=== PATIENT | male | born 1965 | race Caucasian/White ===

== ENCOUNTER 2021-01-15 15:13 | Outpatient (REF) | payer MEDICARE, MEDICAID, SELFPAY ==
--- NOTE | ~2021-01-15 | US_ITS ---
EXAMINATION: US RETROPERITONEAL COMPLETE (RENAL) CLINICAL INFORMATION: Hypertension, THIAGO. Rule out obstructive uropathy. COMPARISON: Renal ultrasound 02/15/2019 TECHNIQUE: Real-time imaging of the kidneys and bladder. FINDINGS: RIGHT KIDNEY: 9.6 x 6.1 x 5.0 cm (SAG x AP x TRV). The kidney is normal in size, contour, and echogenicity. Renal cortical thickness is normal. No calculi or focal parenchymal lesions. No hydronephrosis. LEFT KIDNEY: 9.5 x 5.1 x 6.4 cm (SAG x AP x TRV). The kidney is normal in size, contour, and echogenicity. Renal cortical thickness is normal. No calculi or focal parenchymal lesions. No hydronephrosis. BLADDER: Bladder wall is slightly thickened.. Bilateral ureteral jets are demonstrated. Prevoid bladder volume is 289 mL. Postvoid bladder volume is 188 mL. PROSTATE: The prostate gland is normal in size measuring 2.7 x 3.1 x 3.7 cm, volume 16 mL. There is a 1.6 x 1.4 x 2 cm cyst adjacent to the prostate gland that appears unchanged. US/US retroperitoneal comp IMPRESSION: Normal renal ultrasound. Slightly thickened bladder wall and large 188 mL post void bladder residual.
== END 2021-01-15 15:14 | disposition home or self-care (01) ==
LOC: HO.HMGCX 15:13
PROVIDERS: PCP Family Medicine; Visit Provider Family Medicine
DX: I10 Essential (primary) hypertension (principal); S37.009A Unspecified injury of unspecified kidney, initial encounter
CPT/HCPCS: 76770

== ENCOUNTER 2021-03-27 10:20 | Outpatient (REF) | payer MEDICARE, MEDICAID, SELFPAY ==
[2021-03-27 14:33] LABS: Cholesterol 401 mg/dL; HDL Cholesterol 54 mg/dL; LDL Cholesterol Calculated 306 mg/dl; Triglycerides 209 mg/dL
== END 2021-03-27 10:21 | disposition home or self-care (01) ==
LOC: HO.WFDLDS 10:20
PROVIDERS: PCP Family Medicine; Visit Provider Internal Medicine Cardiovascular Disease
DX: E78.5 Hyperlipidemia, unspecified (principal)
CPT/HCPCS: 36415; 80061

== ENCOUNTER → 2021-03-29 12:45 | Outpatient (BNVA) | payer MEDICARE, MEDICAID, SELFPAY | PROVIDERS: PCP Family Medicine; Visit Provider Internal Medicine Cardiovascular Disease | DX: R94.39 Abnormal result of other cardiovascular function study (principal); R07.9 Chest pain, unspecified; E78.49 Other hyperlipidemia | CPT/HCPCS: 93005; 99212 ==

== ENCOUNTER 2021-08-30 11:50 | Outpatient (REF) | payer MEDICARE, MEDICAID, SELFPAY ==
[2021-08-30 12:24] LABS: COVID-19 Test Negative (Negative); IDNOW Serial# 9DB6401D
== END 2021-08-30 11:51 | disposition home or self-care (01) ==
LOC: HO.LAB 11:50
PROVIDERS: PCP Family Medicine; Visit Provider Internal Medicine
DX: Z20.822 Contact with and (suspected) exposure to COVID-19 (principal)
CPT/HCPCS: 87635; C9803

== ENCOUNTER 2022-07-30 12:27 | Outpatient (REF) | payer MEDICARE, MEDICAID, SELFPAY ==
[2022-07-30 14:01] LABS: MANUAL DIFF FLAG NO
[2022-07-30 14:12] LABS: Basophils Absolute Auto 0.1 X10*3/uL (0.0-0.2); Basophils Percent Auto 0.9 % (0-2); Eosinophils Absolute Auto 0.3 X10*3/uL (0.0-0.4); Eosinophils Percent Auto 3.9 % (0-4); Hematocrit 43.7 % (42.0-52.0); Hemoglobin 14.1 g/dl (14.0-18.0); Imm Gran Abs Auto 0.05 X10*3/uL (0.00-0.03); Imm Gran Pct Auto 0.8 % (0.0-0.4); Lymphocytes Absolute Auto 0.8 X10*3/uL (1.2-4.9); Lymphocytes Percent Auto 12.9 % (20-40); Mean Corpuscular HGB Conc 32.3 g/dl (31.0-36.0); Mean Corpuscular Hemoglobin 27.6 pg (27.0-33.0); Mean Corpuscular Volume 85.5 fL (80.0-98.0); Mean Platelet Volume 11.9 fL (9.4-12.4); Monocytes Absolute Auto 0.8 X10*3/uL (0.1-1.2); Neutrophils Absolute Auto 4.4 x10*3/uL (2.0-8.3); Neutrophils Percent Auto 68.5 % (45-73); Platelet Count 374 X10*3/uL (160-400); Red Blood Count 5.11 X10*6/uL (4.60-5.80); Red Cell Distribution Width 14.3 % (11.0-16.0); White Blood Count 6.5 X10*3/uL (4.8-10.8)
[2022-07-30 14:28] LABS: Blood Urea Nitrogen 26 mg/dL (9-16); Estimated Glomerular Filt Rate 47
[2022-08-01 15:33] LABS: IgA 100 mg/dL (47-310); IgG 786 mg/dL (600-1640); IgM 92 mg/dL (50-300)
== END 2022-07-30 12:28 | disposition home or self-care (01) ==
LOC: HO.10HDL 12:27
PROVIDERS: Visit Provider Physician Assistant
DX: G35 Multiple sclerosis (principal); Z79.899 Other long term (current) drug therapy
CPT/HCPCS: 36415; 82565; 82784; 84520; 85025

== ENCOUNTER 2022-08-27 14:06 | Outpatient (REF) | payer MEDICARE, MEDICAID, SELFPAY ==
--- NOTE | ~2022-08-27 | XR_ITS ---
EXAMINATION: XR HIP, RIGHT CLINICAL INFORMATION: Right hip pain status post fall. COMPARISON: None available. TECHNIQUE: AP and lateral views of the right hip and and AP view of the pelvis. FINDINGS: Mild osteoarthritis at the right hip is characterized by small marginal osteophytes and articular sclerosis. No fracture or malalignment. Osseous prominence is present at the femoral head-neck junction anteriorly. No fracture or malalignment. SI joints and pubic symphysis are normal. Soft tissues are unremarkable. XR/XR hip RT w PEL1V IMPRESSION: Mild osteoarthritis at the right hip. No acute osseous findings.
== END 2022-08-27 14:07 | disposition home or self-care (01) ==
LOC: HO.XRAY 14:06
PROVIDERS: Visit Provider Family Medicine
DX: M25.551 Pain in right hip (principal); Z91.81 History of falling
CPT/HCPCS: 73502

== ENCOUNTER → 2022-09-16 09:45 | Outpatient (BNVA) | payer MEDICARE, MEDICAID, SELFPAY | PROVIDERS: PCP Family Medicine; Visit Provider Physician Assistant | DX: M16.11 Unilateral primary osteoarthritis, right hip (principal); M70.71 Other bursitis of hip, right hip | CPT/HCPCS: 99202 ==

== ENCOUNTER 2023-03-12 11:30 | Outpatient (AMB) | payer MEDICARE, MEDICAID, SELFPAY ==
[2023-03-12 11:33] VITALS: BMI 28.9
--- NOTE | 2023-03-12 11:33 | A.OFFVIS_ITS ---
Intake Vital Signs 03/12/23 11:33 Height 5 ft 8 in Weight 190 lb BMI 28.9 Intake Visit Reasons: OV- Right hip pain Intake Note: Juan 57 year old male presents today for a follow up of right hip. Patient reports he was not able to attend therapy. States pain comes with any movement and will feel a snap. He would like to discuss injection. Allergies iodine Allergy (Unknown, Uncoded 03/12/23 11:41) red flush HPI OV- Right hip pain HPI Details 57-year-old male who returns to the [facility] today for a follow-up of right hip pain. He continues to have pain in his hip with any movement. He also c/o feeling a ?snap? in his hip. He reports he was unable to attend physical therapy. He finds transient relief with Celebrex. He would like to discuss having an injection. [facility], [facility] Medical History (Updated 03/12/23 @ 12:23 by Seema Guerra PA-C) Hypertension Multiple sclerosis Surgical History History of tonsillectomy Family History (Updated 03/29/21 @ 12:48 by KRISTOPHER Best) Father CAD (coronary artery disease) Arteriosclerosis of bypass graft of coronary artery Mother CAD (coronary artery disease) Heart valve replaced Social History Alcohol intake: current Alcohol intake frequency: holidays/special occasions only Patient Tobacco Use Status: Former Tobacco user Tobacco use type: Cigarette Years Smoked: 40 +/- Substance Use Type: Marijuana Current occupational status: disabled Review of Systems Const All systems reviewed & are unremarkable except as noted in HPI and below Physical Exam Vital Signs: BMI result Body Mass Index 28.9 Const General: cooperative, healthy appearing, comfortable, no acute distress, well developed and alert Orientation/consciousness: patient oriented x3 HEENT Head: Yes normal to inspection, Yes normocephalic and Yes atraumatic Eyes General: appearance normal, both eyes and all related structures Resp Effort & Inspection: normal respiratory effort and able to speak in complete sentences Cardio Rate: regular rate Peripheral pulses: Peripheral pulses 2+ throughout GI Palpation (GI): Soft to palpation Skin Lesions: no lesions Rashes: no rashes Neuro General: patient oriented x3 Extrem Other: Right hip: Normal to inspection. No pain with ROM of the hip. Pain along the greater trochanter. No pain with hip flexion or abduction. Negative tenderness along the SI joint, Negative SLR. NVI. Assessment & Plan Assessment & Plan (1) Osteoarthritis of right hip: Code(s): M16.11 - Unilateral primary osteoarthritis, right hip Qualifiers: Osteoarthritis type: primary Qualified Code(s): M16.11 - Unilateral primary osteoarthritis, right hip (2) Bursitis of right hip: Code(s): M70.71 - Other bursitis of hip, right hip Qualifiers: Hip bursitis location: trochanteric bursitis Qualified Code(s): M70.61 - Trochanteric bursitis, right hip Plan He is unable to attend formal physical therapy therefore I had given him a handout of home exercises and demonstrated some of it in the office today. If symptoms persist or worsens, patient will contact the office for an injection, otherwise follow-up as needed. Patient Instructions: Scribed for Seema Guerra PA-C, by Daljit Benavides director medical surgical, on 03/12/2023 at 11:30 AM EST. Seema Armstrong PA-C, have personally reviewed and agree with the information entered by the scribe. Coding Level of Care Code Est Pt Level 3 (52364) Diagnoses Primary osteoarthritis of right hip M16.11 Osteoarthritis type: primary Trochanteric bursitis of right hip M70.61 Hip bursitis location: trochanteric bursitis
== END 2023-03-12 12:51 | disposition home or self-care (01) ==
PROVIDERS: PCP Family Medicine; Visit Provider Physician Assistant
DX: M16.11 Unilateral primary osteoarthritis, right hip (principal); M70.61 Trochanteric bursitis, right hip
CPT/HCPCS: 99213

== ENCOUNTER → 2023-03-12 11:30 | Outpatient (BNVA) | payer MEDICARE, MEDICAID, SELFPAY | PROVIDERS: PCP Family Medicine; Visit Provider Physician Assistant | DX: M16.11 Unilateral primary osteoarthritis, right hip (principal); M70.61 Trochanteric bursitis, right hip; G35 Multiple sclerosis | CPT/HCPCS: 99212 ==

== ENCOUNTER → 2025-02-22 13:17 | Outpatient (BNVA) | payer MEDICARE, MEDICAID, SELFPAY | PROVIDERS: PCP Family Medicine; Visit Provider Physician Assistant | DX: I10 Essential (primary) hypertension (principal); E78.5 Hyperlipidemia, unspecified; G35.D Multiple sclerosis, unspecified; E55.9 Vitamin D deficiency, unspecified; F32.9 Major depressive disorder, single episode, unspecified | CPT/HCPCS: 99202 ==

== ENCOUNTER 2025-02-22 14:27 | Outpatient (AMB) | payer MEDICARE, MEDICAID, SELFPAY ==
--- OUTSIDE RECORDS SUMMARY | 2024-01-30 13:06 | XMS_ITS | Encounter Summary ---
Author Organization [facility] Address [address] [place] [address] Care Team Providers Care Attorney Law Clerk Name Role Phone Te Pyane MD Primary Care Provider [phone] Encounter Details Date Type Department Care Team (Latest Contact Info) Description 01/30/2024 1:06 PM EDT Hospital Encounter TH HISTORIC ENCOUNTERS EASTERN CONVERSION ONLY Te Payne MD [address] [place] [place] [address] Unilateral primary osteoarthritis, right hip Social History [...] Description 04/06/2025 3:00 PM EST Office Visit [facility] [place] [address] [place] [address] Ada Hinton PA [address] [place] [phone] 08/16/2025 12:00 PM EDT Appointment [facility] MS Outpatient Rehabilititation - [place] [address] [place] [address] documented as of this encounter [...] EDT Narrative 01/30/2024 2:[address] [facility] Diagnostic Imaging Department [address] [place] [address] Patient: ATILIO ALONSO D.O.B./Age/Sex: 1965 - 58 - M Unit#: [id number] [facility] Mnemonic/Ordering Site: [address]/[facility] Ordering Physician: TE PAYNE MD CR Hip [...] Moderate arthritic change of the right hip. [id number] Dictating Physician: COCO VAUGHN MD Electronically Signed by: COCO VAUGHN MD Dic Date/Time: 01/30/24 1429 Sign date/Time: 01/30/24 1431 Procedure Note Coco Vaughn MD - 02/24/2024 [facility] Diagnostic Imaging Department [address] [place] [address] Patient: ATILIO ALONSO Darling CrumpB./Age/Sex: 1965 - 58 - M Unit#: [id number] Location/Status: SPD[facility]/REG CLI Mnemonic/Ordering Site: [facility] Ordering Physician: TE PAYNE MD CR Hip [...] Moderate arthritic change of the right hip. [id number] Dictating Physician: COCO VAUGHN MD Electronically Signed by: COCO VAUGHN MD Dic Date/Time: 01/30/24 1429 Sign date/Time: 01/30/24 1431 us Te Payne MD IMG XR PROCEDURES Final Result documented in this encounter Visit Diagnoses Diagnosis Unilateral primary osteoarthritis, right hip documented in this encounter Care Teams Attorney Law Clerk Relationship Specialty Start Date End Date Te Payne MD [address] [place] [address] [place] [address] PCP - General Internal Medicine 05/09/20 documented as of this encounter
--- OUTSIDE RECORDS SUMMARY | 2024-02-10 11:14 | XMS_ITS | Encounter Summary ---
Author Organization [facility] [place] [address] Care Team Providers Care Haulage Engine Operator Name Role Phone Venancio Payne MD Primary Care Provider [phone] Encounter Details Date Type Department Care Team [...] Description 04/06/2025 3:00 PM EST Office Visit [facility] [address] [facility] [address] [place] [address] Ada Hinton PA [address] [place] [address] 08/16/2025 12:00 PM EDT Appointment [facility] Outpatient Rehabilititation - [place] [address] [facility] [address] [place] [address] documented as of this encounter Visit Diagnoses Not on filedocumented in this encounter Care Teams Haulage Engine Operator Relationship Specialty Start Date End Date Venancio Payne MD [address] [place] [address] [address] [place] [address] PCP - General Internal Medicine 05/09/20 documented as of this encounter
--- OUTSIDE RECORDS SUMMARY | 2025-02-16 11:32 | XMS_ITS | Encounter Summary ---
Author Organization [facility] Address [address] [place] [address] Care Team Providers Care Bone Drier Name Role Phone Venancio Payne MD Primary Care Provider [phone] Reason for Visit * Episode Based Medications (Routine) - Closed Specialty Diagnoses / Procedures Referred By Contac t Referred To Contact Infusion Therapy Diagnoses Multiple sclerosis (CMS/HCC V24, CMS/HCC V28) Ocrevus 600 rapid Procedures INFUSION Ada Hinton PA [address] [address] Phone: tel: fax: [facility] [address] [address] Phone: tel: fax: Referral ID Status Reason Start Date Expiration Date Visits Re quested Visits Authorized [id number] Closed 08/10/2024 08/09/2025 2 2 Encounter Details Date Type Department Care Team (Latest Contact Info) Description 02/16/2025 11:32 AM EDT - 02/16/2025 11:59 PM EDT Hospital Encounter [facility] [address] [phone] Multiple sclerosis (Primary Dx); Encounter for therapeutic drug monitoring Discharge Disposition: Home or Self Care Social History Tobacco Use Types Packs/Day Years Used Date Smoking Tobacco: Some Days Smokeless Tobacco: Never Tobacco Cessation:Ready to Q uit: Not Asked; Counseling Given: Not Answered Alcohol Use Standard Drinks/Week Comments No 0 (1 standard drink = 0.6 oz pur e alcohol) Sex and Gender Information Value Date Recorded Sex Assigned at Not on file Legal Sex Male 5:09 AM EST Gender Identity Not on file Sexual Orientation Not on file documented as of this encounter Last Filed Vital Signs Vital Sign Reading Time Taken Comments Blood Pressure 156/92 02/16/2025 2:46 PM EDT Pulse 65 02/16/2025 2:46 PM EDT Temperature 36 C (96.8 F) 02/16/2025 2:46 PM EDT Respiratory Rate 18 02/16/2025 2:46 PM EDT Oxygen Saturation 93% 02/16/2025 2:46 PM EDT Inhaled Oxygen Concentration - - Weight - - Height - - Body Mass Index - - documented in this encounter Medications at Time of Discharge amLODIPine (NORVASC) 5 mg tablet Take 1 tablet (5 mg total) by mouth. 10/11/2019 apixaban (ELIQUIS) 5 mg tablet Take 1 tablet (5 mg total) by mouth 2 (two) times a day. 04/18/2020 ergocalciferol (VITAMIN D-2) 1,250 mcg (50,000 unit) capsule Take 1 capsule (50,000 Units total) by mouth 1 (one) time per week. 12 capsule 05/21/2024 escitalopram (LEXAPRO) 5 mg tablet Take 1 tablet (5 mg total) by mouth. 09/21/2021 eszopiclone (LUNESTA) 3 mg tablet Take 1 tablet (3 mg total) by mouth. at bedtime for sleep 10/11/2024 fenofibrate (LOFIBRA) 160 mg tablet Take 1 tablet (160 mg total) by mouth. 10/11/2019 hydrOXYzine (ATARAX) 10 mg/5 mL syrup Take 5 mL (10 mg total) by mouth. pantoprazole (PROTONIX) 40 mg EC tablet Take 1 tablet (40 mg total) by mouth. QUEtiapine (SEROquel) 25 mg tablet Take 1 tablet (25 mg total) by mouth. senna (SENOKOT) 8.6 mg tablet TAKE 1 TABLET BY MOUTH AT BEDTIME NEEDED FOR CONSTIPATION 08/14/2021 documented as of this encounter Discharge Disposition Disposition Code Departure Means Destination Home or Self Care documented in this encounter Progress Notes * Amy Akers RN - 02/16/2025 12:00 PM EDTEncounter addended by: Amy Akers RN on: 02/16/2025 3:29 PM Actions taken: LDA properties accepted, Flowsheet accepted * Amy Akers RN - 02/16/2025 12:00 PM EDT Ocrevus dose 600mg Infusion # 6 completed. Pt. premedicated with 975mg PO Tylenol, 50mg IVP Benadryl, and 125mg IVP Solumedrol. Labs: drawn 08/10/24 Brain MRI: 07/08/24 Cervical MRI: 07/08/24 Provider: Ashley Last appointment: 10/25/24 Next appointment: [facility] 6 month subsequent infusion: 02/08/25 Pt. completed observation period. Pt. verbalized understanding of all discharge instructions and future appointment dates/times provided. Pt. Tolerated infusion well. No signs of reaction. Pt. BP still elevated. Pt. States he feels well. States he takes blood pressure medication, took dose this AM.Pt has appointment with new PCP on Friday02/22/25 BP. Also instructed to see immediate medical care if severe headache, chest pain, vision changes, N/V. IV removed, discharge to home. documented in this encounter Plan of Treatment Upcoming Encounters Date Type Department Care Team (Late st Contact Info) Description 04/06/2025 3:00 PM EST Office Visit [facility] [place] [address] [place] [phone] Ada Hinton PA [facility] [place] [phone] 08/16/2025 12:00 PM EDT Appointment [facility] [place] [address] [place] [phone] documented as of this encounter Procedures Procedure Name Priority Date/Time Associated Diagnosis Comments CBC WITH AUTO DIFFERENTIAL Routine 02/16/2025 11:43 AM EDT Multiple sclerosis Encounter for therapeutic drug monitoring CREATININE, SERUM Routine 02/16/2025 11: 43 AM EDT Multiple sclerosis Encounter for therapeutic drug monitoring CBC AND DIFFERENTIAL Routine 02/16/2025 11:43 AM EDT Multiple sclerosis Encounter for therapeutic drug monitoring BUN Routine 02/16/2025 11:43 AM EDT Multiple sclerosis Encounter for therapeutic drug monitoring HEPATIC FUNCTION PANEL Routine 02/16/2025 11:43 AM EDT Multiple sclerosis Encounter for therapeutic drug monitoring documented in this encounter Results * (ABNORMAL) CBC auto differential (02/16/2025 11:43 AM EDT) WBC 7.5 4.8 - 10.8 K/mcL LAB HEMETOLOGY METHOD 02/16/2025 2:18 PM EDT [facility] RBC 5.50 4.50 - 5.50 M/mcL LAB HEMETOLOGY METHOD 02/16/2025 2:18 PM EDT [facility] Hemoglobin 16.5 13.5 - 17.5 g/dL LAB HEMETOLOGY METHOD 02/16/2025 2:18 PM EDT [facility] Hematocrit 46.6 42.0 - 54.0 % LAB HEMETOLOGY METHOD 02/16/2025 2:18 PM EDT [facility] MCV 84.9 79.0 - 98.0 FL LAB HEMETOLOGY METHOD 02/16/2025 2:18 PM EDT [facility] MCH 30.1 27.0 - 32.0 pcg LAB HEMETOLOGY METHOD [facility] MCHC 35.4 32.0 - 37.0 g/dL LAB HEMETOLOGY METHOD 02/16/2025 2:18 PM EDT [facility] RDW 14.3 11.0 - 15.0 % LAB HEMETOLOGY METHOD 02/16/2025 2:18 PM EDT [facility] Platelets 426(H) 130 - 400 K/mcL LAB HEMETOLOGY METHOD 02/16/2025 2:18 PM EDT [facility] MPV 11.7(H) 7.0 - 11.0 FL LAB HEMETOLOGY METHOD 02/16/2025 2:18 PM EDT [facility] NRBC 0.0 <1.0 % LAB HEMETOLOGY METHOD 02/16/2025 2:18 PM EDT [facility] NRBC Absolute 0.00 <0.10 K/mcL LAB HEMETOLOGY METHOD [facility]/16[facility]25 [facility] Neutrophils Relative 67.6 % LAB HEMETOLOGY METHOD 02/16/2025 2:18 PM EDT [facility] Lymphocytes Relative 14.8 % LAB HEMETOLOGY METHOD 02/16/2025 2:18 PM EDT [facility] Monocytes Relative 11.2 % LAB HEMETOLOGY METHOD 02/16/2025 2:18 PM [facility] Eosinophils Relative 4.5 % LAB HEMETOLOGY METHOD 02/16/2025 2:18 PM EDT [facility] Basophils Relative 1.1 % LAB HEMETOLOGY METHOD 02/16/2025 2:18 PM EDT [facility] Immature Granulocytes Relative 0.8 % LAB HEMETOLOGY METHOD 02/16/2025 2:18 PM EDT [facility] Neutrophils Absolute 5.08 1.50 - 7.00 K/mcL LAB HEMETOLOGY METHOD 02/16/2025 2:18 PM EDT [facility] Lymphocytes Absolute 1.11 1.00 - 5.00 K/mcL LAB HEMETOLOGY METHOD 02/16/2025 2:18 PM EDT [facility] Monocytes Absolute 0.84 0.20 - 1.00 K/[facility] LAB HEMETOLOGY METHOD 02/16/2025 2:18 PM EDT [facility] Eosinophils Absolute 0.34 0.00 - 0.50 K/[facility] LAB HEMETOLOGY METHOD 02/16/2025 2:18 PM EDT [facility] Basophils Absolute 0.08 0.00 - 0.20 K/[facility] LAB HEMETOLOGY METHOD 02/16/2025 2:18 PM EDT [facility] Immature Granulocytes Absolute 0.06(H) 0.00 - 0.03 K/[facility] LAB HEMETOLOGY METHOD 02/16/2025 2:18 PM EDT [facility] Blood Venous blood specimen / Unknown Venipuncture / Unknown 02/16/2025 11:43 AM EDT 02/16/2025 11:43 AM EDT Ada LEVIN LAB BLOOD ORDERABLES Final R esult [facility] [address] [place] [address], [place] [phone] * Hepatic function panel (02/16/2025 11:43 AM EDT) Total Protein 6.8 6.0 - 8.0 g/dL LAB CHEMISTRY METHOD 02/16/2025 3:08 PM EDT [facility] Albumin 3.7 3.2 - 5.0 g/dL LAB CHEMISTRY METHOD 02/16/2025 3:08 PM EDT [facility] Total Bilirubin 0.4 0.0 - 1.4 mg/dL LAB CHEMISTRY METHOD 02/16/2025 3:08 PM EDT [facility] Bilirubin, Direct 0.2 0.0 - 0.3 mg/dL LAB CHEMISTRY METHOD 02/16/2025 3:08 PM EDT [facility] Bilirubin, Indirect 0.2 0.0 - 1.1 mg/dL LAB CHEMISTRY METHOD 02/16/2025 3:08 PM EDT [facility] ALT (SGPT) 51 10 - 60 unit/L LAB CHEMISTRY METHOD 02/16/2025 3:08 PM EDT [facility] AST (SGOT) 37 10 - 42 unit/L LAB CHEMISTRY METHOD 02/16/2025 3:08 PM EDT [facility] Alkaline Phosphatase 100 42 - 121 unit/L LAB CHEMISTRY METHOD 02/16/2025 3:08 PM EDT [facility] Blood Venous blood specimen / Unknown Venipuncture / Unknown 02/16/2025 11:43 AM EDT 02/16/2025 11:43 AM EDT Ada LEVIN LAB BLOOD ORDERABLES Final R esult [facility] [address] [place] [address], * (ABNORMAL) Creatinine (02/16/2025 11:43 AM EDT) Creatinine 1.54(H) 0.70 - 1.30 mg/dL LAB CHEMISTRY METHOD 02/16/2025 3:04 PM EDT [facility] eGFR 52(L) >=60 mL/min/1. 73m2 LAB CHEMISTRY METHOD 02/16/2025 3:04 PM EDT [facility] Comment:Calculation based on the Chronic Kidney Disease Epidemiology Collaboration (CKD-EPI) equation refit without adjustment for race. Blood Venous blood specimen / Unknown Venipuncture / Unknown 02/16/2025 11:43 AM EDT 02/16/2025 11:43 AM EDT us Ada LEVIN LAB BLOOD ORDERABLES Final R esult Performing Organization Address City/[facility]/ZIP Co de Phone Number [facility] [address] [place] [address], * BUN (02/16/2025 11:43 AM EDT) BUN 17 5 - 25 mg/dL LAB CHEMISTRY METHOD 02/16/2025 3:04 PM EDT [facility] Blood Venous blood specimen / Unknown Venipuncture / Unknown 02/16/2025 11:43 AM EDT 02/16/2025 11:43 AM EDT Ada LEVIN LAB BLOOD ORDERABLES Final R esult Performing Organization Address [facility] Co de Phone Number [facility] [address] [place] [address], documented in this encounter Visit Diagnoses Diagnosis Multiple sclerosis- Primary Encounter for therapeutic drug monitoring documented in this encounter Administered Medications Inactive Administered Medications - up to 3 most recent administrations Medication Order MAR Action Action Date Dose Rate Site acetaminophen (TYLENOL) tablet 975 mg 975 mg, oral, Once, On Fri02/16/25 at 1200, For 1 doseIndications:Multiple sclerosis Given 02/16/2025 12:06 PM EDT 975 mg diphenhydrAMINE (BENADRYL) injection 50 mg 50 mg, intravenous, Once, On Fri02/16/25 at 1200, For 1 doseIndications:Multiple sclerosis Given 02/16/2025 12:07 PM EDT 50 mg methylPREDNISolone sodium succ (SOLU-Medrol) injection 125 mg 125 mg, intravenous, Once, On Fri02/16/25 at 1200, For 1 dose, Reconstitute each 125 mg vial with 2 mL sterile water for injection to a concentration of 62.5 mg/mL.Indications:Multiple sclerosis Given 02/16/2025 12:07 PM EDT 125 mg ocrelizumab (OCREVUS) 600 mg in sodium chloride 0.9 % 520 mL IVPB 600 mg, intravenous, Once, On Fri02/16/25 at 1230, For 1 dose, If no prior serious infusion reaction with any previous ocrelizumab infusion, begin infusion at 100 mL/hour for the first 15 minutes. Increase infusion rate to 200 mL/hour for the next 15 minutes. Increase infusion rate to 250 mL/hour for the next 30 minutes. Increase infusion rate to 300 mL/hour for the remaining 60 minutes. Infusion duration is 2 hours or longer. For patients with a history of serious infusion reaction to any previous ocrelizumab infusion, begin infusion at 40 mL/hour; increase by 40 mL/hour every 30 minutes to a maximum rate of 200 mL/hour. Infusion duration is 3.5 hours or longer. Administer though a dedicated IV line using a 0.2 or 0.22 micron in-line filter.Indications:Multiple sclerosis New Bag 02/16/2025 12:36 PM EDT 600 mg documented in this encounter Orders Nursing Count Last Ordered Date First Orde red Date ONC NURSING COMMUNICATION 1 02/16/2025 ONC NURSING COMMUNICATION 10 1 02/16/2025 ONC NURSING COMMUNICATION 7 1 02/16/2025 TREATMENT CONDITIONS 1 02/16/2025 documented in this encounter Care Teams Bone Drier Relationship Specialty Start Date End Date Venancio Payne MD [address] [place] [address] [place] [address] PCP - General Internal Medicine 05/09/20 documented as of this encounter
--- NOTE | 2025-02-22 14:50 | MHC.PC.OV ---
Vital Signs 02/22/25 15:03 Weight 87.09 kg BP 166/100 H Blood Pressure Location Rt brachial Position Sitting Pulse 82 Pulse Source Pulse Oximeter Temp 98.4 F Temp Source Temporal Artery Scan Pulse Oximetry (%) 98 Oxygen Delivery Method Room Air Intake Visit Reasons: New Patient [facility] Dr Payne Loss Prevention Coordinator Required: No Accompanied by: Self / Same As Patient Allergies iodine Allergy (Unknown, Uncoded 03/12/23 11:41) red flush Medication List - Last Reconciled 02/22/25 by POONAM Bell apixaban (Eliquis) 5 mg PO BID cholecalciferol (vitamin D3) 25 mcg PO QAM escitalopram oxalate mg PO eszopiclone mg PO fenofibrate 160 mg PO DAILY hydroxyzine HCl mg PO ocrelizumab (Ocrevus) 600 mg IV [id number] omeprazole mg PO quetiapine mg PO sennosides (senna) 8.6 mg PO DAILY PRN vitamin B complex ER (Complex B-100 tablet,extended release) 1 tab PO DAILY Tobacco use date assessed: 02/22/25 Dental Screening Dental Screen Date: 02/22/25 Did you have a dental visit in the last 12 months?: No Did you have a dental problem in the last 6 months where you did not have access to dental care?: No Was dental information given to patient?: Patient has dentist HPI HPI Comments History of Present Illness Details 59-year-old male with history of multiple sclerosis, hypertension, colon polyp, familial hypercholesterolemia, GERD, CKD stage 3, history of PE, major depressive disorder, neurogenic bladder presenting to the office today for management of chronic conditions and to establish care. He is a prior patient of Dr. Payne, last seen 09/2024. Multiple sclerosis-follows with the [facility]. Has been doing well on Ocrevus infusions every 6 months. Reports symptoms of fatigue and balance have improved. He still has spasticity in the right lower extremity as well as left. He uses walking sticks to assist with ambulation. He does have optic neuritis and is looking for a referral to new fiction and nonfiction prose writer. Has visual blind spots and kaleidoscope vision Familial hypercholesterolemia-overdue for lipid panel. Last LDL 306. Intolerant of statins. Currently on fenofibrate 160 mg daily Major depressive disorder-stable on escitalopram. Also hydroxyzine and Lunesta Obesity-working at weight loss. Has lost about 30 lb in the last year. Following a healthier diet History of PE-lifelong Eliquis Concerns: None Health maintenance: Last colonoscopy 08/2023 with tubular adenoma, Dr. Wang [facility] ROS: See HPI EXAM: Constitutional - Awake and Alert, No apparent distress Eyes - PERRL Cardiovascular - S1S2, RRR, No edema Respiratory - Normal lung expansion, Normal respiratory effort, No respiratory distress, CTA bilaterally Extremities - no calf tenderness bilaterally, no swelling Skin - Warm/Dry Neurological - Alert & oriented x3, spasticity noted in the right lower extremity Psychological - Appropriate affect [facility] Medical History (Updated 02/23/25 @ 12:53 by POONAM Bell) Major depressive disorder Vitamin D deficiency Hypertension Multiple sclerosis Surgical History (Updated 02/21/25 @ 18:21 by Rae Back) History of colonoscopy (~08/28/23) History of tonsillectomy Family History (Updated 03/29/21 @ 12:48 by KRISTOPHER Best) Father CAD (coronary artery disease) Arteriosclerosis of bypass graft of coronary artery Mother CAD (coronary artery disease) Heart valve replaced Social History Housing: House Alcohol intake: current Alcohol intake frequency: holidays/special occasions only Patient Tobacco Use Status: Former Tobacco user Tobacco use type: Cigarette Years Smoked: 40 +/- e-Cigarette/Vaping Use: Never Used Substance Use Type: Marijuana service: No Current occupational status: disabled Questionnaire AUDIT C Alcohol Use Questionnaire (AUDIT-C) 1. How often do you have a drink containing alcohol?: Monthly or less 2. How many drinks containing alcohol do you have on a typical day when you are drinking?: 1 or 2 3. How often do you have six or more drinks on one occasion?: Never Total Score: 1 Physical exam (Primary Care) Vital Signs: Last Vital Signs Temp 98.4 F 02/22/25 15:03 Pulse 82 02/22/25 15:03 BP 166/100 H 02/22/25 15:03 Pulse Ox 98 02/22/25 15:03 Oxygen Delivery Method Room Air 02/22/25 15:03 Tobacco/Smoking Status: Tobacco use Status Tobacco use date assessed 02/22/25 02/22/25 15:02 Patient Tobacco Use Status Former Tobacco user 02/22/25 14:51 Tobacco use type Cigarette 02/22/25 14:51 e-Cigarette/Vaping Use Never Used 02/22/25 15:10 Coding Level of Care Code New Pt Level 4 (98972) Complex EM visit Add On G2211 Diagnoses Hypertension I10 Hyperlipidemia E78.5 Multiple sclerosis G35 Vitamin D deficiency E55.9 Major depressive disorder F32.9 Assessment & Plan Assessment & Plan (1) Hypertension: Code(s): I10 - Essential (primary) hypertension Category: Medical Plan: Uncontrolled. Increase amlodipine to 10 mg daily. Follow up in the office in 2-3 weeks for blood pressure check. Low-sodium diet (2) Hyperlipidemia: Code(s): E78.5 - Hyperlipidemia, unspecified Category: Medical Plan: Lipid panel ordered. ASCVD risk score to be calculated pending results of studies. Intolerant of statins. Can continue fenofibrate. However last LDL was 306. Consider referral to Cardiology/Repatha (3) Multiple sclerosis: Code(s): G35 - Multiple sclerosis Category: Medical Plan: Stable overall. [facility] Declines muscle relaxer for spasticity. Advised to continue with walking stick versus since balance. Referral for ophthalmology placed. Can continue on Ocrevus. Labs ordered as below for monitoring (4) Vitamin D deficiency: Code(s): E55.9 - Vitamin D deficiency, unspecified Category: Medical Plan: Labs as below (5) Major depressive disorder: Code(s): F32.9 - Major depressive disorder, single episode, unspecified Category: Medical Plan: Stable. No alarm symptoms. Continue current therapies (6) Hypertension: Code(s): I10 - Essential (primary) hypertension Category: Medical Plan: Uncontrolled. Increase amlodipine to 10 mg daily. Plan Follow-up in the office in 3 weeks for blood pressure check. Fasting labs ordered Orders: Orders Basic Metabolic Panel 02/22/25 E78.5 - Hyperlipidemia, unspecified, G35 - Multiple sclerosis, I10 - Essential (primary) hypertension Complete Blood Count Auto Diff 02/22/25 E78.5 - Hyperlipidemia, unspecified, G35 - Multiple sclerosis, I10 - Essential (primary) hypertension Prostate Specific Antigen 02/22/25 E78.5 - Hyperlipidemia, unspecified, G35 - Multiple sclerosis, I10 - Essential (primary) hypertension Vitamin D 25-OH Total 02/22/25 E55.9 - Vitamin D deficiency, unspecified Lipid Panel 02/22/25 E78.5 - Hyperlipidemia, unspecified, G35 - Multiple sclerosis, I10 - Essential (primary) hypertension Liver Panel 02/22/25 E78.5 - Hyperlipidemia, unspecified, G35 - Multiple sclerosis, I10 - Essential (primary) hypertension Referrals Ophthalmology Referral G35 - Multiple sclerosis Medications: New amlodipine 10 mg PO DAILY 90 tabs 1RF
[2025-02-22 15:03] VITALS: BP 166/100; PULSE 82; TEMP 36.9; O2SAT 98
--- OUTSIDE RECORDS SUMMARY | 2025-02-22 18:47 | XMS_ITS | Clinical Summary ---
Author Organization [facility] Facility Address [address] [place] [address] Care Team Providers Care Final Operations Technician Name Role Phone Unavailable Primary Care Provider Unavailabl e Social History Tobacco Use Types Packs/Day Years Used Date Smoking Tobacco: Never Assessed Sex and Gender Information Value Date Recorded Sex Assigned at Not on file Legal Sex Male 10:53 AM EST Gender Identity Not on file Sexual Orientation Not on file Plan of Treatment Health Maintenance Due Date Last Done Comments Hepatitis B Vaccine (1 of 3 - 19+ 3-dose series) 12/31 Colorectal Cancer Screening: Annual FOBT 2014 Colorectal Cancer Screening: Colonoscopy 2014 Colorectal Cancer Screening: Sigmoidoscopy 2014 Pneumococcal Vaccine: 50+ Years (1 of 1 - PCV) 016 Influenza Vaccine (#1) 2024 Insurance Medicare [place]
--- OUTSIDE RECORDS SUMMARY | 2025-02-22 18:47 | XMS_ITS | Clinical Summary ---
Author Organization [facility] Address [address] [place] [address] Phone Care Team Providers Care Button Cutting Machine Operator Name Role Phone Venancio Payne MD Primary Care Provider Allergies No known active allergies Medications amLODIPine (NORVASC) 5 mg tablet Take 1 tablet (5 mg total) by mouth. 0 Active apixaban (ELIQUIS) 5 mg tablet Take 1 tablet (5 mg total) by mouth 2 (two) times a day. 0 Active escitalopram (LEXAPRO) 5 mg tablet Take 1 tablet (5 mg total) by mouth. 2 Active fenofibrate (LOFIBRA) 160 mg tablet Take 1 tablet (160 mg total) by mouth. 0 Active hydrOXYzine (ATARAX) 10 mg/5 mL syrup Take 5 mL (10 mg total) by mouth. Active pantoprazole (PROTONIX) 40 mg EC tablet Take 1 tablet (40 mg total) by mouth. Active QUEtiapine (SEROquel) 25 mg tablet Take 1 tablet (25 mg total) by mouth. Active senna (SENOKOT) 8.6 mg tablet TAKE 1 TABLET BY MOUTH AT BEDTIME NEEDED FOR CONSTIPATION 2 Active ergocalciferol (VITAMIN D-2) 1,250 mcg (50,000 unit) capsule Take 1 capsule (50,000 Units total) by mouth 1 (one) time per week. 12 capsule 5 Active eszopiclone (LUNESTA) 3 mg tablet Take 1 tablet (3 mg total) by mouth. at bedtime for sleep Active Active Problems Problem Noted Date Diagnosed Date Multiple sclerosis 10/10/2020 Abnormality of gait due to impairment of balance 09/03/2019 Depression 09/03/2019 HLD (hyperlipidemia) 09/03/2019 HTN (hypertension) 09/03/2019 Encounters Date Type Department Care Team Description 02/16/2025 11:32 AM EDT - 02/16/2025 11:59 PM EDT Hospital Encounter [facility] [place] [facility] [address] [address] Multiple sclerosis (Primary Dx); Encounter for therapeutic drug monitoring Discharge Disposition: Home or Self Care from Last 3 Months Medical History Medical History Date Comments Anxiety DX:Anxiety Acid reflux DX:Acid reflux High cholesterol DX:High cholest izabel Multiple sclerosis 07/14/2012 DX:Multiple s clerosis (HCC) Deep vein blood clot of righ t lower extremity (CMS/HCC V24, CMS/HCC V28) 01/2020 DX:Deep vein bloo d clot of right lower extremity (HCC);COMMENT:hospitalized for blood clot in right hip Family History Medical History Relation Name Comments Heart disease Father Heart disease Mother Multiple sclerosis Neg Hx Relation Name Status Comments Father Mother Social History Tobacco Use Types Packs/Day Years [...] on file Sexual Orientation Not on file Obstetrics History Last Filed Vital Signs Vital Sign Reading Time Taken Comments Blood Pressure 156/92 02/16/2025 2:46 PM EDT Pulse 65 02/16/2025 2:46 PM EDT Temperature 36 C (96.8 F) 02/16/2025 2:46 PM EDT Respiratory Rate 18 02/16/2025 2:46 PM EDT Oxygen Saturation 93% 02/16/2025 2:46 PM EDT Inhaled Oxygen Concentration - - Weight 90.7 kg (200 lb) 10/25/2024 1:05 PM EDT Height 172.7 cm (5' 8 ) 10/25/2024 1:05 PM EDT Body Mass Index 30.41 10/25/2024 1:05 PM EDT Plan of Treatment Upcoming Encounters Date Type Department Care Team (Late st Contact Info) Description 04/06/2025 3:00 PM EST Office Visit [facility] [address] [facility] [address] [place] [id number] Ada Hinton, POONAM [address] [place] [phone] 08/16/2025 12:00 PM EDT Appointment [facility] [place] [address] [facility] [address] [place] [address] Health Maintenance Due Date Last Done Comments Colorectal Cancer Screening: Colonoscopy 1965 Hepatitis B Vaccines (1 of 3 - 19+ 3-dose series) 1984 Pneumococcal Vaccine: 50+ Years (1 of 2 - PCV) 1984 Zoster Vaccines (1 of 2) 01/01/2016 Cholesterol Screening (Lipid Panel) 04/05/2022 HIV Screening 04/05/2022 Hepatitis C Screening 04/05/2022 Medicare Annual Wellness Visit 04/05/2022 Social Influencers of Health Screening 04/05/2022 Depression Screening 04/28/2024 Influenza Vaccine (#1) 2024 , 01/23/2023, 03/18/2020, Additional history exists Hypertension/CHF/CAD Annual BMP Blood Test 02/16/2026 02/16/2025, 10/18/2024, 08/10/2024 DTaP,Tdap,and Td Vaccines (2 - Td or Tdap) 06/16/2030 06/16/2020 RSV Immunization Adult Patients (1 - 1-dose 75+ series) 2040 COVID-19 Vaccine Completed 06/01/2024, , 05/14/2022, Additional history exists HIB Vaccines Aged Out No longer eligi ble based on patient's age to complete this topic HPV Vaccines Aged Out No longer eligi ble based on patient's age to complete this topic Hepatitis A Vaccines Aged Out No long er eligible based on patient's age to complete this topic IPV Vaccines Aged Out No longer eligi ble based on patient's age to complete this topic MMR Vaccines Aged Out No longer eligi ble based on patient's age to complete this topic Meningococcal ACWY Vaccine Aged Out N o longer eligible based on patient's age to complete this topic Meningococcal B Vaccine Aged Out No l onger eligible based on patient's age to complete this topic RSV Immunization Patients Under 20 months Aged Out No longer eligible based on patient's age to complete this topic Varicella Vaccines Aged Out No longer eligible based on patient's age to complete this topic Procedures Procedure Name Priority Date/Time Associated Diagnosis [...] Multiple sclerosis Encounter for therapeutic drug monitoring from Last 3 Months Results * (ABNORMAL) CBC auto differential (02/16/2025 11:43 AM EDT) WBC 7.5 4.8 - 10.8 K/mcL LAB HEMETOLOGY METHOD 02/16/2025 2:18 PM EDT [facility] RBC 5.50 4.50 - 5.50 M/mcL LAB HEMETOLOGY METHOD 02/16/2025 2:18 PM EDT [facility] Hemoglobin 16.5 13.5 - 17.5 g/dL LAB HEMETOLOGY METHOD 02/16/2025 2:18 PM EDT [facility] Hematocrit 46.6 42.0 - 54.0 % LAB HEMETOLOGY METHOD 02/16/2025 2:18 PM EDT [facility] MCV 84.9 79.0 - 98.0 FL LAB HEMETOLOGY METHOD 02/16/2025 2:18 PM EDT [facility] MCH 30.1 27.0 - 32.0 pcg LAB HEMETOLOGY METHOD 02/16/2025 2:18 PM EDT [facility] MCHC 35.4 32.0 - 37.0 g/dL LAB HEMETOLOGY METHOD 02/16/2025 2:18 PM EDT [facility] RDW 14.3 11.0 - 15.0 % LAB HEMETOLOGY METHOD 02/16/2025 2:18 PM EDT [facility] Platelets 426(H) 130 - 400 K/mcL LAB HEMETOLOGY METHOD 02/16/2025 2:18 PM EDT [facility] MPV 11.7(H) 7.0 - 11.0 FL LAB HEMETOLOGY METHOD 02/16/2025 2:18 PM EDT [facility] NRBC 0.0 <1.0 % LAB HEMETOLOGY METHOD 02/16/2025 2:18 PM EDT [facility] NRBC Absolute 0.00 <0.10 K/mcL LAB HEMETOLOGY METHOD 02/16/2025 2:18 PM EDT [facility] Neutrophils Relative 67.6 % LAB HEMETOLOGY METHOD 02/16/2025 2:18 PM EDT [facility] Lymphocytes Relative 14.8 % LAB HEMETOLOGY METHOD 02/16/2025 2:18 PM EDT [facility] Monocytes Relative 11.2 % LAB HEMETOLOGY METHOD 02/16/2025 2:18 PM EDT [facility] Eosinophils Relative 4.5 % LAB HEMETOLOGY METHOD 02/16/2025 2:18 PM EDT [facility] Basophils Relative 1.1 % LAB HEMETOLOGY METHOD 02/16/2025 2:18 PM EDT [facility] Immature Granulocytes Relative 0.8 % LAB HEMETOLOGY METHOD 02/16/2025 2:18 PM EDT [facility] Neutrophils Absolute 5.08 1.50 - 7.00 K/mcL LAB HEMETOLOGY METHOD 02/16/2025 2:18 PM EDT [facility] Lymphocytes Absolute 1.11 1.00 - 5.00 K/mcL LAB HEMETOLOGY METHOD 02/16/2025 2:18 PM EDT [facility] Monocytes Absolute 0.84 0.20 - 1.00 K/mcL LAB HEMETOLOGY METHOD 02/16/2025 2:18 PM EDT [facility] Eosinophils Absolute 0.34 0.00 - 0.50 K/mcL LAB HEMETOLOGY METHOD 02/16/2025 2:18 PM EDT [facility] Basophils Absolute 0.08 0.00 - 0.20 K/mcL LAB HEMETOLOGY METHOD 02/16/2025 2:18 PM EDT [facility] Immature Granulocytes Absolute 0.06(H) 0.00 - 0.03 K/mcL LAB HEMETOLOGY METHOD 02/16/2025 2:18 PM EDT [facility] Blood Venous blood specimen / Unknown Venipuncture / Unknown 02/16/2025 11:43 AM EDT 02/16/2025 11:43 AM EDT us Ada LEVIN LAB BLOOD ORDERABLES Final R esult [facility] [address] [place] [address], * (ABNORMAL) Creatinine (02/16/2025 11:43 AM EDT) Creatinine 1.54(H) 0.70 - 1.30 mg/dL LAB CHEMISTRY METHOD 02/16/2025 3:04 PM EDT [facility] eGFR 52(L) >=60 mL/min/1. 73m2 LAB CHEMISTRY METHOD 02/16/2025 3:04 PM EDT [facility] Comment:Calculation based on the Chronic Kidney Disease Epidemiology Collaboration (CKD-EPI) equation refit without adjustment for race. Blood Venous blood specimen / Unknown Venipuncture / Unknown 02/16/2025 11:43 AM EDT 02/16/2025 11:43 AM EDT Ada LEVIN LAB BLOOD ORDERABLES Final R esult Performing Organization Address City/[facility]/ZIP Co de Phone Number [facility] [address] [place] [address], [place] [phone] * BUN (02/16/2025 11:43 AM EDT) Pathologist [facility] BUN 17 5 - 25 mg/dL LAB CHEMISTRY METHOD 02/16/2025 3:04 PM EDT [facility] Blood Venous blood specimen / Unknown Venipuncture / Unknown 02/16/2025 11:43 AM EDT 02/16/2025 11:43 AM EDT Ada LEVIN LAB BLOOD ORDERABLES Final R esult [facility] [address] [place] [address], [place] [phone] * Hepatic function panel (02/16/2025 11:43 AM EDT) Total Protein 6.8 6.0 - 8.0 g/dL LAB CHEMISTRY METHOD 02/16/2025 3:08 PM EDT [facility] Albumin 3.7 3.2 - 5.0 g/dL LAB CHEMISTRY METHOD 02/16/2025 3:08 PM EDT [facility] Total Bilirubin 0.4 0.0 - 1.4 mg/dL LAB CHEMISTRY METHOD 02/16/2025 3:08 PM EDT [facility] Bilirubin, Direct 0.2 0.0 - 0.3 mg/dL LAB CHEMISTRY METHOD 02/16/2025 3:08 PM EDT [facility] Bilirubin, Indirect 0.2 0.0 - 1.1 mg/dL LAB CHEMISTRY METHOD 02/16/2025 3:08 PM EDT [facility] ALT (SGPT) 51 10 - 60 unit/L LAB CHEMISTRY METHOD 02/16/2025 3:08 PM EDT [facility] AST (SGOT) 37 10 - 42 unit/L LAB CHEMISTRY METHOD 02/16/2025 3:08 PM EDT [facility] Alkaline Phosphatase 100 42 - 121 unit/L LAB CHEMISTRY METHOD 02/16/2025 3:08 PM EDT [facility] Blood Venous blood specimen / Unknown Venipuncture / Unknown 02/16/2025 11:43 AM EDT 02/16/2025 11:43 AM EDT Ada LEVIN LAB BLOOD ORDERABLES Final R esult [facility] [address] [place] [address], from Last 3 Months Insurance [place]IC[place] Advance Directives Documents on File Type Date Recorded 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
--- OUTSIDE RECORDS SUMMARY | 2025-02-22 18:47 | XMS_ITS ---
Author Name [facility] Organization Unknown History of Medication Use Medication Directions Dispensed Refills Start Date End Date Status ergocalciferol (VITAMIN D-2) 1,250 mcg (50,000 unit) capsule Take 1 capsule (50,000 Units total) by mouth 1 (one) time per week. 5 active acetaminophen (TYLENOL) tablet 975 mg 975 mg, Oral, Once, On Fri08/12/23 at 1445, For 1 doseGive 30 minutes prior to ocrelizumab. 4 024 completed diphenhydrAMINE (BENADRYL) injection 50 mg 50 mg, Intravenous, Once, On Fri08/12/23 at 1445, For 1 doseGive 30 minutes prior to ocrelizumab. IV push over 2-3 minutes. See PO diphenhydramine order. Please give PO or IV. Common Side Effects: Drowsiness, stomach upset, confusion, dry mouth. Administer undiluted. Maximum rate 25 mg/min. 4 024 completed methylPREDNISolone sodium succinate (SOLU-Medrol) injection 125 mg 125 mg, Intravenous, Once, On Fri08/12/23 at 1445, For 1 doseGive 30 minutes prior to ocrelizumab. Administer over 2-3 minutes 4 completed ocrelizumab (OCREVUS) 600 mg in sodium chloride (NS) 0.9 % 500 mL IVPB 600 mg, Intravenous, Once, On Fri08/12/23 at 1445, For 1 doseMust use in-line 0.22 micron filter. - Infusion Rate for first full 600 mg dose or reaction with previous infusion: Start at 40 mL/hr. Increase by 40 mL/hr every 30 minutes. Maximum rate: 200 mL/hr. Duration: 3.5 hours or longer. - Infus 4 024 completed gabapentin (NEURONTIN) 300 MG capsule 1-2 tabs po tid 3 active baclofen (LIORESAL) 10 MG tablet 1 po hs 3 active celecoxib (CeleBREX) 200 MG capsule Take 1 capsule (200 mg total) by mouth 2 (two) times a day. 3 active escitalopram (LEXAPRO) 5 mg tablet Take 1 tablet (5 mg total) by mouth. 2 active escitalopram (LEXAPRO) 5 MG tablet Take 1 tablet (5 mg total) by mouth daily. 2 active ergocalciferol (VITAMIN D2) capsule 64463 units Take 1 capsule (50,000 Units total) by mouth once a week. 2 active senna (SENOKOT) 8.6 mg tablet TAKE 1 TABLET BY MOUTH AT BEDTIME NEEDED FOR CONSTIPATION 2 active senna (SENOKOT) 8.6 MG TABS tablet TAKE 1 TABLET BY MOUTH AT BEDTIME NEEDED FOR CONSTIPATION 2 active apixaban (ELIQUIS) 5 mg tablet Take 1 tablet (5 mg total) by mouth 2 (two) times a day. 0 active ELIQUIS 5 MG TABS tablet TAKE 1 TABLET BY MOUTH TWICE A DAY DIRECTED 0 active amLODIPine (NORVASC) 5 mg tablet Take 1 tablet (5 mg total) by mouth. 0 active amLODIPine (NORVASC) tablet 5 mg Take 1 tablet (5 mg total) by mouth daily. 0 active fenofibrate (LOFIBRA) 160 mg tablet Take 1 tablet (160 mg total) by mouth. 0 active fenofibrate (TRIGLIDE) 160 MG tablet Take 1 tablet (160 mg total) by mouth daily. with food 0 active eszopiclone (LUNESTA) 3 MG TABS tablet Take 1 tablet (3 mg total) by mouth every night at bedtime. Take immediately before bedtime active hydrOXYzine (ATARAX) 10 mg/5 mL syrup Take 5 mL (10 mg total) by mouth. active hydrOXYzine (ATARAX) 10 MG/5ML syrup Take 5 mL (10 mg total) by mouth 3 (three) times a day. active pantoprazole (PROTONIX) 40 mg EC tablet Take 1 tablet (40 mg total) by mouth. active pantoprazole (PROTONIX) 40 MG tablet Take 1 tablet (40 mg total) by mouth every morning on an empty stomach. active QUEtiapine (SEROquel) 25 mg tablet Take 1 tablet (25 mg total) by mouth. active QUEtiapine (SEROquel) 25 MG tablet Take 1 tablet (25 mg total) by mouth every night at bedtime. active Problems Problem Status Onset Date Problem Type Date of Resoluti on Source Depression active 2019-09-03 ProblemAct [facility] Abnormality of gait due to impairment of balance active 2019-09-03 ProblemAct [facility] HLD (hyperlipidemia) active 2019-09-03 ProblemAct [facility] Multiple sclerosis active 2020-10-10 ProblemAct [facility] HTN (hypertension) active 2019-09-03 ProblemAct [facility]
--- OUTSIDE RECORDS SUMMARY | 2025-02-22 18:47 | XMS_ITS | Clinical Summary ---
Author Organization [facility] Address [address] [place] [address] Care Team Providers Care Box Printing Machine Operator Name Role Phone Venancio Payne MD Primary Care Provider [phone] Allergies No known active allergies Medications Medication Sig Dispensed Refills Start Date End Date Status fenofibrate (TRIGLIDE) 160 MG tablet Take 1 tablet (160 mg total) by mouth daily. with food 0 10/11/2019 Active amLODIPine (NORVASC) tablet 5 mg Take 1 tablet (5 mg total) by mouth daily. 0 10/11/2019 Active ELIQUIS 5 MG TABS tablet TAKE 1 TABLET BY MOUTH TWICE A DAY DIRECTED 0 04/18/2020 Active hydrOXYzine (ATARAX) 10 MG/5ML syrup Take 5 mL (10 mg total) by mouth 3 (three) times a day. 0 Active QUEtiapine (SEROquel) 25 MG tablet Take 1 tablet (25 mg total) by mouth every night at bedtime. 0 Active escitalopram (LEXAPRO) 5 MG tablet Take 1 tablet (5 mg total) by mouth daily. 0 09/21/2021 Active eszopiclone (LUNESTA) 3 MG TABS tablet Take 1 tablet (3 mg total) by mouth every night at bedtime. Take immediately before bedtime 0 Active celecoxib (CeleBREX) 200 MG capsule Take 1 capsule (200 mg total) by mouth 2 (two) times a day. 0 09/19/2022 Active baclofen (LIORESAL) 10 MG tablet 1 po hs 90 tablet 3 10/19/2022 Active gabapentin (NEURONTIN) 300 MG capsule 1-2 tabs po tid 180 capsule 5 01/22/2023 Active ergocalciferol (VITAMIN D2) capsule 94870 units Take 1 capsule (50,000 Units total) by mouth once a week. 4 capsule 12 11/19/2023 Active Active Problems Problem Noted Date Diagnosed Date Multiple sclerosis 10/10/2020 HTN (hypertension) 09/03/2019 Abnormality of gait due to impairment of balance 09/03/2019 Depression 09/03/2019 HLD (hyperlipidemia) 09/03/2019 Family History Medical History Relation Name Comments [...] Information Value Date Recorded Sex Assigned at Male 02/07/2023 3:28 PM EDT Gender Identity Not on file Sexual Orientation Not on file Job Start Date Occupation Industry Not on file Not on file Not on file Last Filed Vital Signs Vital Sign Reading Time Taken Comments Blood Pressure 148/93 02/10/2024 2:34 PM EDT Pulse 68 02/10/2024 2:34 PM EDT Temperature 36.1 C (96.9 F) 02/10/2024 2:34 PM EDT Respiratory Rate 15 02/10/2024 2:34 PM EDT Oxygen Saturation 94% 02/10/2024 2:34 PM EDT Inhaled Oxygen Concentration - - Weight 94.5 kg (208 lb 6.4 oz) 09/08/2023 3:36 P M EDT Height 172.7 cm (5' 8 ) 09/08/2023 3:36 PM EDT Body Mass Index 31.69 09/08/2023 3:36 PM EDT Plan of Treatment Health Maintenance Due Date Last Done Comments Hepatitis B Vaccines (1 of 3 - 3-dose series) 1965 Hepatitis C Screening 1965 COVID-19 Vaccine (#1) 06/30/1966 Pneumococcal Vaccine (1 of 2 - PCV) 01/01/1972 Depression Screening 1977 BMI Counseling 01/01/1984 Preventative Health Evaluation 01/01/1984 Tobacco Cessation Counseling 01/01/1984 DTap / Tdap / Td (1 - Tdap) 1984 Colon Cancer Screening (Colonoscopy) 2010 Shingrix-Zoster Vaccine (1 o f 2) 01/01/2016 Influenza Vaccine (#1) 2024 0, 04/06/2019 RSV Ped < 20 months Aged Out No longe r eligible based on patient's age to complete this topic Advance Directives For more information, please contact: [phone] Documents on File Type Date Recorded 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
== END 2025-02-22 15:35 | disposition home or self-care (01) ==
LOC: HO.HMCHD 14:27
PROVIDERS: PCP Physician Assistant; Visit Provider Physician Assistant
DX: I10 Essential (primary) hypertension (principal); E78.5 Hyperlipidemia, unspecified; G35.D Multiple sclerosis, unspecified; E55.9 Vitamin D deficiency, unspecified; F32.9 Major depressive disorder, single episode, unspecified

== ENCOUNTER 2025-03-17 11:58 | Outpatient (REF) | payer MEDICARE, MEDICAID, SELFPAY ==
[2025-03-17 14:10] LABS: MANUAL DIFF FLAG NO
[2025-03-17 14:15] LABS: Hematocrit 47.5 % (42.0-52.0); Hemoglobin 15.3 g/dl (14.0-18.0); Imm Gran Abs Auto 0.07 X10*3/uL (0.00-0.03); Imm Gran Pct Auto 1.0 % (0.0-0.4); Lymphocytes Absolute Auto 1.1 X10*3/uL (1.2-4.9); Mean Corpuscular HGB Conc 32.2 g/dl (31.0-36.0); Mean Corpuscular Hemoglobin 28.0 pg (27.0-33.0); Mean Corpuscular Volume 87.0 fL (80.0-98.0); NRBC Abs Auto 0.000 X10*3/uL (0.0-0.012); NRBC Pct Auto 0.0 /100WBC (0.0-0.2); Platelet Count 434 X10*3/uL (160-400); Red Blood Count 5.46 X10*6/uL (4.60-5.80); White Blood Count 7.2 X10*3/uL (4.8-10.8)
[2025-03-17 14:44] LABS: Alanine Aminotransferase 42 U/L (0-40); Albumin Level 4.6 g/dL (3.5-5.0); Alkaline Phosphatase 98 U/L (39-117); Anion Gap 12 (12-20); Aspartate Amino Transferase 40 U/L (5-37); Blood Urea Nitrogen 25 mg/dL (9-16); Calcium 9.6 mg/dL (8.4-10.2); Carbon Dioxide 25 mmol/L (22-29); Chloride 108 mmol/L (96-108); Cholesterol 446 mg/dL (<200); Estimated Glomerular Filt Rate 58; HDL Cholesterol 45 mg/dL (>40); Potassium 4.5 mmol/L (3.3-5.1); Sodium 140 mmol/L (135-145); Total Protein 7.2 g/dL (6.5-8.0); Triglycerides 210 mg/dL (<150)
[2025-03-17 15:01] LABS: Prostate Specific Antigen 0.65 ng/mL (<0.05-4.0)
--- OUTSIDE RECORDS SUMMARY | 2025-03-17 18:10 | XMS_ITS | Clinical Summary ---
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
== END 2025-03-17 11:59 | disposition home or self-care (01) ==
LOC: HO.WFDLDS 11:58
PROVIDERS: Visit Provider Physician Assistant
DX: I10 Essential (primary) hypertension (principal); E78.5 Hyperlipidemia, unspecified; E55.9 Vitamin D deficiency, unspecified; G35.D Multiple sclerosis, unspecified; Z12.5 Encounter for screening for malignant neoplasm of prostate
CPT/HCPCS: 36415; 80048; 80061; 80076; 82306; 84153; 85025

== ENCOUNTER 2025-03-18 14:20 | Outpatient (AMB) | payer MEDICARE, MEDICAID, SELFPAY ==
--- OUTSIDE RECORDS SUMMARY | 2024-01-30 12:06 | XMS_ITS | Encounter Summary ---
Author Organization [facility] Address [address] [place] [address] Care Team Providers Care Shoemaking Finisher Name Role Phone Te Payne MD Primary Care Provider [phone] Encounter Details Date Type Department Care Team (Latest Contact Info) Description 01/30/2024 1:06 PM EDT Hospital Encounter TH HISTORIC ENCOUNTERS EASTERN CONVERSION ONLY Te Payne MD [address] [place] [address] Unilateral primary osteoarthritis, right hip Social History [...] Description 04/06/2025 3:00 PM EST Office Visit [facility] [place] [address] [place] [address] Ada Hinton PA [address] [place] [phone] 08/16/2025 12:00 PM EDT Appointment [facility] MS Outpatient Rehabilititation - [place] [address] [place] [address] documented as of this encounter Procedures Procedure Name Priority Date/Time Associated Diagnosis Comments CR HIP UNI 2-3 VIEWS RT Routine 01/30/2024 2:31 PM EDT Unilateral primary osteoarthritis, right hip documented in this encounter Results * CR HIP UNI 2-3 VIEWS RT (01/30/2024 2:31 PM EDT) Anatomical Region Laterality Modality Radiographic Sia ging 01/30/2024 1:14 PM EDT Narrative 01/30/2024 2:31 PM EDT [facility] Diagnostic Imaging Department [address] [place] [address] Patient: ATILIO ALONSO D.O.B./Age/Sex: 1965 - 58 - M Unit#: [id number] [facility] Mnemonic/Ordering Site: [address]/[facility] Ordering Physician: TE PAYNE MD CR [...] Moderate arthritic change of the right hip. [id number] Dictating Physician: COCO VAUGHN MD Electronically Signed by: COCO VAUGHN MD Dic Date/Time: 01/30/24 1429 Sign date/Time: 01/30/24 1431 Procedure Note Coco Vaughn MD - 02/24/2024 [facility] Diagnostic Imaging Department [address] [place] [address] Patient: ATILIO ALONSO Darling CrumpB./Age/Sex: 1965 - 58 - M Unit#: [id number] Location/Status: [facility]/REG CLI Mnemonic/[facility] Ordering Physician: TE PAYNE MD CR [...] Moderate arthritic change of the right hip. [id number] Dictating Physician: COCO VAUGHN MD Electronically Signed by: COCO VAUGHN MD Dic Date/Time: 01/30/24 1429 Sign date/Time: 01/30/24 1431 us Te Payne MD IMG XR PROCEDURES Final Result documented in this encounter Visit Diagnoses Diagnosis Unilateral primary osteoarthritis, right hip documented in this encounter Care Teams Shoemaking Finisher Relationship Specialty Start Date End Date Te Payne MD [address] [place] [address] [place] [address] PCP - General Internal Medicine 05/09/20 documented as of this encounter
--- OUTSIDE RECORDS SUMMARY | 2024-02-10 10:14 | XMS_ITS | Encounter Summary ---
Author Organization [facility] [place] [address] Care Team Providers Care Engine Repairer Name Role Phone Venancio Payne MD Primary Care Provider [phone] Encounter Details Date Type Department Care Team [...] Description 04/06/2025 3:00 PM EST Office Visit [facility] [address] [place] [address] Ada Hinton PA [address] [place] [address] 08/16/2025 12:00 PM EDT Appointment [facility] Outpatient Rehabilititation - [place] [address] [address] [place] [address] documented as of this encounter Visit Diagnoses Not on filedocumented in this encounter Care Teams Engine Repairer Relationship Specialty Start Date End Date Venancio Payne MD [address] [place] [address] [address] [place] [address] PCP - General Internal Medicine 05/09/20 documented as of this encounter
--- NOTE | 2025-03-18 14:30 | MHC.PC.OV ---
Vital Signs 03/18/25 14:35 03/18/25 15:11 Height 5 ft 9 in Weight 90.265 kg BMI 29.4 BP 138/86 160/90 H Blood Pressure Location Rt brachial Position Sitting Pulse 68 Pulse Source Pulse Oximeter Temp 98.4 F Temp Source Temporal Artery Scan Pulse Oximetry (%) 97 Oxygen Delivery Method Room Air Intake Visit Reasons: 3 Week F/U Propeller Inspector Required: No Accompanied by: Self / Same As Patient Allergies iodine Allergy (Unknown, Uncoded 03/18/25 14:41) red flush Medication List - Last Reconciled 03/18/25 by POONAM Bell amlodipine 10 mg PO DAILY apixaban (Eliquis) 5 mg PO BID cholecalciferol (vitamin D3) 25 mcg PO QAM escitalopram oxalate mg PO eszopiclone mg PO DAILY fenofibrate 160 mg PO DAILY hydrochlorothiazide 12.5 mg PO DAILY hydroxyzine HCl mg PO ocrelizumab (Ocrevus) 600 mg IV [id number] omeprazole mg PO quetiapine mg PO sennosides (senna) 8.6 mg PO DAILY PRN vitamin B complex ER (Complex B-100 tablet,extended release) 1 tab PO DAILY Tobacco use date assessed: 03/18/25 Dental Screening Dental Screen Date: 03/18/25 Did you have a dental visit in the last 12 months?: No Did you have a dental problem in the last 6 months where you did not have access to dental care?: No HPI HPI Comments History of Present Illness Details 59-year-old male with history of multiple sclerosis, hypertension, colon polyp, familial hypercholesterolemia, GERD, CKD stage 3, history of PE, major depressive disorder, neurogenic bladder presenting to the office today for management of chronic conditions and to establish care. Last seen in the office 1 month ago Multiple sclerosis-follows with the [facility]. Has been doing well on Ocrevus infusions every 6 months. Gets IV solumedrol with infusion. Reports symptoms of fatigue and balance have improved. He still has spasticity in the right lower extremity as well as left. He uses walking sticks to assist with ambulation. He does have optic neuritis. Has visual blind spots and kaleidoscope vision. Was referred to ophtho but has not been contacted. Occ diverticulitis- last flare years ago, if happens again needs resection Familial hypercholesterolemia-Last LDL 359. Intolerant of statins. Currently on fenofibrate 160 mg daily. Referred to Cardiology Major depressive disorder-stable on escitalopram. Also hydroxyzine and Lunesta. Jt Brito for psychiatry and therapist Obesity-working at weight loss. Has lost about 30 lb in the last year. Following a healthier diet History of PE- lifelong Eliquis Hypertension-has been compliant with amlodipine 5 mg daily. Despite this blood pressures remain 160/90 Concerns: None Health maintenance: Last colonoscopy 08/2023 with tubular adenoma, Dr. Wang [facility] ROS: See HPI EXAM: Constitutional - Awake and Alert, No apparent distress Eyes - PERRL Cardiovascular - S1S2, RRR, No edema Respiratory - Normal lung expansion, Normal respiratory effort, No respiratory distress, CTA bilaterally Extremities - no calf tenderness bilaterally, no swelling Skin - Warm/Dry Neurological - Alert & oriented x3, spasticity noted in the right lower extremity Psychological - Appropriate affect PFSH Medical History Major depressive disorder Vitamin D deficiency Hypertension Multiple sclerosis Surgical History History of colonoscopy (~08/28/23) History of tonsillectomy Family History (Updated 03/18/25 @ 14:44 by Vijaya Goldberg MA) Father CAD (coronary artery disease) Arteriosclerosis of bypass graft of coronary artery Mother CAD (coronary artery disease) Heart valve replaced Social History Housing: House Alcohol intake: current Alcohol intake frequency: holidays/special occasions only Patient Tobacco Use Status: Former Tobacco user Tobacco use type: Cigarette Years Smoked: 40 +/- e-Cigarette/Vaping Use: Never Used Substance Use Type: Marijuana service: No Current occupational status: disabled Cognitive needs: No Hearing needs: No Vision needs: No Questionnaire PHQ-9 Over the last 2 weeks, how often have you been bothered by any of the following problems? 1. Little interest or pleasure in doing things: not at all 2. Feeling down, depressed, or hopeless: several days 3. Trouble falling or staying asleep, or sleeping too much: nearly every day (trouble falling asleep) 4. Feeling tired or having little energy: nearly every day 5. Poor appetite or overeating: not at all 6. Feeling bad about yourself - or that you are a failure or have let yourself or your family down: not at all 7. Trouble concentrating on things, such as reading the newspaper or watching television: not at all 8. Moving or speaking so slowly that other people could have noticed. Or the opposite - being so fidgety or restless that you have been moving around a lot more than usual: not at all 9. Thoughts that you would be better off or of hurting yourself in some way: not at all Total score: 7 Source: Developed by Drs. Giuliano Freire, Dai Wu, Richie Reed and colleagues, with an educational britt from [employer]. Thrive Questionnaire Date Thrive assessed: 03/18/25 I am a: Patient Within the past 12 months, did the food you bought not last and you didn't have the money to get more?: Never true Within the past 12 months, did you worry whether your food would run out before you got money to buy more?: Never true Do you have trouble paying for medicines?: No Do you have trouble getting transportation to medical appointments?: No Do you have trouble paying your heating and electricity bill?: No Do you have trouble taking care of your child, family member or friend?: No Do you have trouble with day-to-day activities such as bathing, preparing meals, shopping, managing finances, etc.?: No Are you currently unemployed and looking for a job?: No Are you interested in more education?: No THRIVE Score: 0 AUDIT C Alcohol Use Questionnaire (AUDIT-C) 1. How often do you have a drink containing alcohol?: Never 3. How often do you have six or more drinks on one occasion?: Never Total Score: 0 ROSMERY-7 AMB Questionnaire ROSMERY-7 Date ROSMERY - 7 assessed: 03/18/25 Feeling nervous, anxious, or on edge: 1 = Several days Not being able to stop or control worryin = Not at all Worrying too much about different things: 0 = Not at all Trouble relaxin = Not at all Being so restless that it is hard to sit still: 0 = Not at all Becoming easily annoyed or irritable: 0 = Not at all Feeling afraid as if something awful might happen: 0 = Not at all Total ROSMERY-7 score (0-4 normal; 5-9 mild; 10-14 moderate; 15-21 severe): 1 Source: Developed by Drs. Giuliano Freire, Dai Wu, Richie Reed and colleagues, with an educational britt from [employer]. Physical exam (Primary Care) Vital Signs: Last Vital Signs Temp 98.4 F 03/18/25 14:35 Pulse 68 03/18/25 14:35 BP 160/90 H 03/18/25 15:11 Pulse Ox 97 03/18/25 14:35 Oxygen Delivery Method Room Air 03/18/25 14:35 BMI result Body Mass Index 29.4 Tobacco/Smoking Status: Tobacco use Status Tobacco use date assessed 03/18/25 03/18/25 14:45 Patient Tobacco Use Status Former Tobacco user 03/18/25 14:32 Tobacco use type Cigarette 03/18/25 14:32 e-Cigarette/Vaping Use Never Used 03/18/25 14:32 PHQ-9: PHQ-9 Score PHQ-9: Total score 7 03/18/25 15:15 Thrive Assessment: Date of Thrive Assessment Date Thrive assessed 03/18/25 03/18/25 14:45 Coding Level of Care Code Est Pt Level 4 (83462) Complex visit Add On G2211 Diagnoses Hypertension I10 Hyperlipidemia E78.5 Multiple sclerosis G35 Vitamin D deficiency E55.9 Major depressive disorder F32.9 Assessment & Plan Assessment & Plan (1) Hypertension: Code(s): I10 - Essential (primary) hypertension Category: Medical Plan: Uncontrolled. Increase amlodipine to 10 mg daily and add low-dose hydrochlorothiazide 12.5 mg daily. Follow up in the office in 2-3 weeks for blood pressure check. Low-sodium diet (2) Hyperlipidemia: Code(s): E78.5 - Hyperlipidemia, unspecified Category: Medical Plan: Lipid panel reviewed with patient. Last LDL 359. He is referred to Cardiology for further evaluation and management. Continue fenofibrate. He has been intolerant of multiple statins. (3) Multiple sclerosis: Code(s): G35 - Multiple sclerosis Category: Medical Plan: Stable overall. Continue following at the [facility]. Declines muscle relaxer for spasticity. Advised to continue with walking stick versus since balance. Referral for ophthalmology placed. Can continue on Ocrevus. Labs ordered as below for monitoring (4) Vitamin D deficiency: Code(s): E55.9 - Vitamin D deficiency, unspecified Category: Medical Plan: Normal (5) Major depressive disorder: Code(s): F32.9 - Major depressive disorder, single episode, unspecified Category: Medical Plan: Stable. No alarm symptoms. Continue current therapies and follow-up with Psychiatry/counseling as scheduled Plan Follow-up in the office in 3 weeks for blood pressure check. Labs reviewed with patient Orders: Referrals Cardiology Referral E78.00 - Pure hypercholesterolemia, unspecified, E78.49 - Other hyperlipidemia Medications: New hydrochlorothiazide 12.5 mg PO DAILY 90 caps 1RF
[2025-03-18 14:35] VITALS: BP 138/86; PULSE 68; TEMP 36.9; O2SAT 97; BMI 29.4
--- OUTSIDE RECORDS SUMMARY | 2025-03-18 14:43 | XMS_ITS | Clinical Summary ---
Author Organization [facility] Facility Address [address] [place] [address] Care Team Providers Care Auto Driver Name Role Phone Unavailable Primary Care Provider [...]
--- OUTSIDE RECORDS SUMMARY | 2025-03-18 14:43 | XMS_ITS | Clinical Summary ---
Author Organization [address] [facility] Address [address] [place] [address] Phone Care Team Providers Care Manager Desktop Name Role Phone Venancio Payne MD Primary Care Provider [phone] Allergies No known active allergies Medications amLODIPine [...] AT BEDTIME NEEDED FOR CONSTIPATION 2 Active eszopiclone (LUNESTA) 3 mg tablet Take 1 tablet (3 mg total) by mouth. at bedtime for sleep 5 Active ergocalciferol (VITAMIN D-2) 1,250 mcg (50,000 unit) capsule Take 1 capsule (50,000 Units total) by mouth 1 (one) time per week. 12 capsule 2 5 Active ergocalciferol (VITAMIN D-2) 1,250 mcg (50,000 unit) capsule Take 1 capsule (50,000 Units total) by mouth 1 (one) time per week. 12 capsule 5 025 Discontin ued(Reord er) ergocalciferol (VITAMIN D-2) 1,250 mcg (50,000 unit) capsule Take 1 capsule (50,000 Units total) by mouth 1 (one) time per week. 12 capsule 2 5 025 Discontin ued(Reord er) Active Problems Problem Noted Date Diagnosed Date Multiple sclerosis 10/10/2020 Abnormality of gait due to impairment of balance 09/03/2019 Depression 09/03/2019 HLD (hyperlipidemia) 09/03/2019 HTN (hypertension) 09/03/2019 Encounters Date Type Department Care Team Description 02/16/2025 11:32 AM EDT - 02/16/2025 11:59 PM EDT Hospital Encounter [facility] [place] [facility] [address] [phone] Multiple sclerosis (Primary Dx); Encounter [...] Upcoming Encounters Date Type Department Care Team ([facility] st Contact Info) Description 04/06/2025 3:00 PM EST Office Visit [facility] [place] [address] [phone] [address] [phone] 08/16/2025 12:00 PM EDT Appointment [facility] [place] [address] [phone] Health Maintenance Due Date Last Done Comments [...] of Health Screening 04/05/2022 Depression Screening 04/28/2024 COVID-19 Vaccine ( season) 2024 06/01/2024, 01/23/2023, 05/14/2022, Additional history exists Influenza Vaccine (#1) 2024 , 01/23/2023, 03/18/2020, Additional history exists Hypertension/CHF/CAD Annual BMP Blood Test 02/16/2026 02/16/2025, 10/18/2024, 08/10/2024 DTaP,Tdap,and Td Vaccines (2 - Td or Tdap) 06/16/2030 06/16/2020 RSV Immunization Adult Patients (1 - 1-dose 75+ series) 2040 HIB Vaccines Aged Out No longer eligi [...] LAB HEMETOLOGY METHOD 02/16/2025 2:18 PM EDT [facility] RBC 5.50 4.50 - 5.50 M/mcL LAB [facility] Hem[facility] 16.5 13.5 - 17.5 g/dL LAB HEMETOLOGY METHOD 02/16/2025 2:18 PM EDT [facility] Hematocrit 46.6 42.0 - 54.0 % LAB HEMETOLOGY METHOD 02/16/2025 2:18 PM [facility] MCV 84.9 79.0 - 98.0 FL LAB HEMETOLOGY METHOD 02/16/2025 2:18 PM [facility] MCH 30.1 27.0 - 32.0 pcg LAB HEMETOLOGY METHOD 02/16/2025 2:18 PM [facility] MCHC 35.4 32.0 - 37.0 g/dL LAB HEMETOLOGY METHOD 02/16/2025 2:18 PM [facility] RDW 14.3 11.0 - 15.0 % LAB HEMETOLOGY METHOD 02/16/2025 2:18 PM [facility] Platelets 426(H) 130 - 400 K/[facility] LAB HEMETOLOGY METHOD 02/16/2025 2:18 PM EDT [facility] MPV 11.7(H) 7.0 - 11.0 FL LAB HEMETOLOGY METHOD 02/16/2025 2:18 PM [facility] NRBC 0.0 <1.0 % LAB HEMETOLOGY METHOD 02/16/2025 2:18 PM [facility] NRBC Absolute 0.00 <0.10 K/[facility] LAB HEMETOLOGY METHOD [facility]/16[facility]25 2:[facility] Neutrophils Relative 67.6 % LAB HEMETOLOGY METHOD 02/16/2025 2:18 PM EDT [facility] Lymphocytes Relative 14.8 % LAB HEMETOLOGY METHOD 02/16/2025 2:18 PM T [facility] Monocytes Relative 11.2 % LAB HEMETOLOGY METHOD 02/16/2025 2:18 PM EDT [facility] Eosinophils Relative 4.5 % LAB HEMETOLOGY METHOD 02/16/2025 2:18 PM EDT [facility] Basophils Relative 1.1 % LAB HEMETOLOGY METHOD 02/16/2025 2:18 PM [facility] Immature Granulocytes Relative 0.8 % LAB HEMETOLOGY METHOD 02/16/2025 2:18 PM [facility] Neutrophils Absolute 5.08 1.50 - 7.00 K/mcL LAB HEMETOLOGY METHOD 02/16/2025 2:18 PM EDT [facility] Lymphocytes Absolute 1.11 1.00 - 5.00 K/mcL LAB HEMETOLOGY METHOD 02/16/2025 2:18 PM [facility] Monocytes Absolute 0.84 0.20 - 1.00 K/mcL LAB HEMETOLOGY METHOD 02/16/2025 2:18 PM [facility] Eosinophils Absolute 0.34 0.00 - 0.50 K/mcL LAB HEMETOLOGY METHOD 02/16/2025 2:18 PM EDT [facility] Basophils Absolute 0.08 0.00 - 0.20 K/mcL LAB HEMETOLOGY METHOD 02/16/2025 2:18 PM [facility] Immature Granulocytes Absolute 0.06(H) 0.00 - 0.03 K/mcL LAB HEMETOLOGY METHOD 02/16/2025 2:18 PM [facility] Blood Venous blood specimen / Unknown Venipuncture / Unknown 02/16/2025 11:43 AM EDT 02/16/2025 11:43 AM EDT Ada Cordovai PA LAB BLOOD ORDERABLES Final R esult Performing Organization Address [facility]/ZIP Co de Phone Number [facility] [address] [place] [address], [place] [phone] * (ABNORMAL) Creatinine (02/16/2025 11:43 AM EDT) Creatinine 1.54(H) 0.70 - 1.30 mg/dL LAB CHEMISTRY METHOD 02/16/2025 3:04 PM EDT [facility] eGFR 52(L) >=60 mL/min/1. 73m2 LAB CHEMISTRY METHOD 02/16/2025 3:04 PM EDT [facility] Comment:Calculation based on the Chronic Kidney Disease Epidemiology Collaboration (CKD-EPI) equation refit without adjustment for race. Blood Venous blood specimen / Unknown Venipuncture / Unknown 02/16/2025 11:43 AM EDT 02/16/2025 11:43 AM EDT Ada Cordovai PA LAB BLOOD ORDERABLES Final R esult Performing Organization Address [facility] Co de Phone Number [facility] [address] [place] [address], [place] [phone] * BUN (02/16/2025 11:43 AM EDT) BUN 17 5 - 25 mg/dL LAB CHEMISTRY METHOD 02/16/2025 3:04 PM EDT [facility] Blood Venous blood specimen / Unknown Venipuncture / Unknown 02/16/2025 11:43 AM EDT 02/16/2025 11:43 AM EDT Ada Cordovai PA LAB BLOOD ORDERABLES Final R esult [facility] [address] [place] [address], [place] [phone] * Hepatic function panel (02/16/2025 11:43 AM EDT) Total Protein 6.8 6.0 - 8.0 g/dL LAB CHEMISTRY METHOD 02/16/2025 3:08 PM EDT [facility] Albumin 3.7 3.2 - 5.0 g/dL LAB CHEMISTRY METHOD 02/16/2025 3:08 PM EDT [facility] Total Bilirubin 0.4 0.0 - 1.4 mg/dL LAB CHEMISTRY METHOD 02/16/2025 3:08 PM T [facility] Bilirubin, Direct 0.2 0.0 - 0.3 mg/dL LAB CHEMISTRY METHOD 02/16/2025 3:08 PM EDT [facility] Bilirubin, Indirect 0.2 0.0 - 1.1 mg/dL LAB CHEMISTRY METHOD 02/16/2025 3:08 PM EDT [facility] ALT (SGPT) 51 10 - 60 unit/L LAB CHEMISTRY METHOD 02/16/2025 3:08 PM T [facility] AST (SGOT) 37 10 - 42 unit/L LAB CHEMISTRY METHOD 02/16/2025 3:08 PM EDT [facility] Alkaline Phosphatase 100 42 - 121 unit/L LAB CHEMISTRY METHOD 02/16/2025 3:08 PM EDT [facility] Blood Venous blood specimen / Unknown Venipuncture / Unknown 02/16/2025 11:43 AM EDT 02/16/2025 11:43 AM EDT Ada LEVIN LAB BLOOD ORDERABLES Final R esult [facility] [address] [place] [address], [place] [phone] from Last 3 Months Insurance MEDICARE [place]ICAID [place] Advance Directives Documents on File Type Date Recorded Patient Crystal Gazer Expl anation Health Care Decision (hx) 05/09/2020 ARELI PRATHER DIRECTIVE Care Teams Manager Desktop Relationship Specialty Start Date End Date Venancio Payne MD [address] [place] [address] [place] [address] PCP - General Internal Medicine 05/09/20
--- OUTSIDE RECORDS SUMMARY | 2025-03-18 14:43 | XMS_ITS | Clinical Summary ---
Author Organization 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
[2025-03-18 15:11] VITALS: BP 160/90
== END 2025-03-18 15:20 | disposition home or self-care (01) ==
LOC: HO.HMCHD 14:21
PROVIDERS: PCP Physician Assistant; Visit Provider Physician Assistant
DX: I10 Essential (primary) hypertension (principal); E78.5 Hyperlipidemia, unspecified; G35.D Multiple sclerosis, unspecified; E55.9 Vitamin D deficiency, unspecified; F32.9 Major depressive disorder, single episode, unspecified

== ENCOUNTER → 2025-03-18 14:20 | Outpatient (BNVA) | payer MEDICARE, MEDICAID, SELFPAY | PROVIDERS: PCP Physician Assistant; Visit Provider Physician Assistant | DX: I10 Essential (primary) hypertension (principal); E78.5 Hyperlipidemia, unspecified; F32.9 Major depressive disorder, single episode, unspecified; Z79.899 Other long term (current) drug therapy; E55.9 Vitamin D deficiency, unspecified; Z87.891 Personal history of nicotine dependence; Z13.30 Encounter for screening examination for mental health and behavioral disorders, unspecified | CPT/HCPCS: 96127; 99212 ==

== ENCOUNTER 2025-04-01 14:13 | Outpatient (AMB) | payer MEDICARE, MEDICAID, SELFPAY ==
--- OUTSIDE RECORDS SUMMARY | 2024-01-30 12:06 | XMS_ITS | Encounter Summary ---
Author Organization [facility] Address [address] [place] [address] Care Team Providers Care Web Page Developer Name Role Phone Te Payne MD Primary Care Provider [phone] Encounter Details Date Type Department Care Team (Latest Contact Info) Description 01/30/2024 1:06 PM EDT Hospital Encounter TH HISTORIC ENCOUNTERS EASTERN CONVERSION ONLY Te Payne MD [address] [place] [id number] Unilateral primary osteoarthritis, right hip Social History Tobacco Use Types Packs/Day Years Used Date Smoking Tobacco: Some Days Smokeless Tobacco: Never Alcohol Use Standard Drinks/Week Comments No 0 (1 standard drink = 0.6 oz pur e alcohol) Sex and Gender Information Value Date Recorded Sex Assigned at Not on file Legal Sex Male 5:09 AM EST Gender Identity Not on file Sexual Orientation Not on file documented as of this encounter Plan of Treatment Upcoming Encounters Date Type Department Care Team (Late st Contact Info) Description 04/06/2025 3:00 PM EST Office Visit [facility] [place] [address] [place] [address] Ada Hinton PA [address] [place] [phone] 08/16/2025 12:00 PM EDT Appointment [facility] MS Outpatient Rehabilititation - [place] [address] [place] [address] documented as of this encounter Procedures Procedure Name Priority Date/Time Associated Diagnosis Comments CR HIP UNI 2-3 VIEWS RT Routine 01/30/2024 2:31 PM EDT Unilateral primary osteoarthritis, right hip documented in this encounter Results * CR HIP UNI 2-3 VIEWS RT (01/30/2024 2:31 PM EDT) Anatomical Region Laterality Modality Radiographic Sia ging 01/30/2024 1:14 PM EDT Narrative 01/30/2024 2:[address] [facility] Diagnostic Imaging Department [address] [place] [address] Patient: ATILIO ALONSO D.O.B./Age/Sex: 1965 - 58 - M Unit#: [id number] [facility] Mnemonic/Ordering Site: [address]/[facility] Ordering Physician: TE PAYNE MD CR Hip Uni 2-3 Views RT - 01/30/24 - Report Status:Signed History: Chronic right hip pain. No trauma. Comparison: CT abdomen/pelvis 03/14/17 Findings: An AP view of the pelvis to include both hips and AP and frog-leg lateral views of the right hip are submitted. There is moderate loss of cartilage space in the right hip, accompanied by osteophyte formation along the base of the femoral head, new from the previous study. No fractures or osseous destructive lesions are seen. The left hip is unremarkable in a single projection. The pelvic bones are intact. The sacroiliac joints are well-maintained. The overlying soft tissues are unremarkable. Impression: Moderate arthritic change of the right hip. [id number] Dictating Physician: COCO VAUGHN MD Electronically Signed by: COCO VAUGHN MD Dic Date/Time: 01/30/24 1429 Sign date/Time: 01/30/24 1431 Procedure Note Coco Vaughn MD - 02/24/2024 [facility] Diagnostic Imaging Department [address] [place] [id number] Patient: ATILIO ALONSO Darling CrumpB./Age/Sex: 1965 - 58 - M Unit#: [id number] Location/Status: [facility]/REG CLI Mnemonic/Ordering Site: [facility] Ordering Physician: TE PAYNE MD CR Hip Uni 2-3 Views RT - 01/30/24 - Report Status:Signed History: Chronic right hip pain. No trauma. Comparison: CT abdomen/pelvis 03/14/17 Findings: An AP view of the pelvis to include both hips and AP and frog-leg lateralviews of the right hip are submitted. There is moderate loss of cartilage space in the right hip, accompaniedby osteophyte formation along the base of the femoral head, new from theprevious study. No fractures or osseous destructive lesions are seen. The left hip is unremarkable in a single projection. The pelvic bones are intact. The sacroiliac joints are well-maintained.The overlying soft tissues are unremarkable. Impression: Moderate arthritic change of the right hip. [id number] Dictating Physician: COCO VAUGHN MD Electronically Signed by: COCO VAUGHN MD Dic Date/Time: 01/30/24 1429 Sign date/Time: 01/30/24 1431 us Te Payne MD IMG XR PROCEDURES Final Result documented in this encounter Visit Diagnoses Diagnosis Unilateral primary osteoarthritis, right hip documented in this encounter Care Teams Web Page Developer Relationship Specialty Start Date End Date Te Payne MD [address] [place] [address] [place] [address] PCP - General Internal Medicine 05/09/20 documented as of this encounter
--- OUTSIDE RECORDS SUMMARY | 2024-02-10 10:14 | XMS_ITS | Encounter Summary ---
Author Organization [facility] [place] [address] Care Team Providers Care At Home Independent Call Center Agent Name Role Phone Venancio Payne MD Primary Care Provider [phone] Encounter Details Date Type Department Care Team (Late st Contact Info) Description 02/10/2024 11:14 AM EDT Hospital Encounter TH HISTORIC ENCOUNTERS EASTERN CONVERSION ONLY Social History Tobacco Use Types Packs/Day Years [...] on file documented as of this encounter Last Filed Vital Signs Vital Sign Reading Time Taken Comments Blood Pressure - - Pulse - - Temperature - - Respiratory Rate - - Oxygen Saturation - - Inhaled Oxygen Concentration - - Weight 94.5 kg (208 lb 6.4 oz) 09/08/2023 3:36 P M EDT Height 172.7 cm (5' 8 ) 09/08/2023 3:36 PM EDT Body Mass Index 31.69 09/08/2023 3:36 PM EDT documented in this encounter Plan of Treatment Upcoming Encounters Date Type Department Care Team (Late st Contact Info) Description 04/06/2025 3:00 PM EST Office Visit [facility] [address] [place] [address] Ada Hinton PA [address] [place] [address] 08/16/2025 12:00 PM EDT Appointment [facility] MS Outpatient Rehabilititation - [place] [address] [place] [address] documented as of this encounter Visit Diagnoses Not on filedocumented in this encounter Care Teams At Home Independent Call Center Agent Relationship Specialty Start Date End Date Venancio Payne MD [address] [place] [address] [address] [place] [address] PCP - General Internal Medicine 05/09/20 documented as of this encounter
--- NOTE | 2025-04-01 14:14 | MHC.PC.OV ---
Vital Signs 04/01/25 14:16 04/01/25 14:38 Height 5 ft 6.8 in Weight 88.961 kg BMI 30.9 BP 140/92 H 136/86 Blood Pressure Location Lt brachial Position Sitting Respiration 16 Pulse 76 Pulse Source Pulse Oximeter Temp 97.3 F Temp Source Temporal Artery Scan Pulse Oximetry (%) 96 Oxygen Delivery Method Room Air Intake Visit Reasons: F/U bp Facility Administrator Required: No Accompanied by: Self / Same As Patient Allergies iodine Allergy (Intermediate, Verified 04/01/25 14:14) red flush Medication List - Last Reconciled 04/01/25 by POONAM Bell amlodipine 10 mg PO DAILY apixaban (Eliquis) 5 mg PO BID ergocalciferol (vitamin D2) PO escitalopram oxalate mg PO .QD eszopiclone mg PO DAILY fenofibrate 160 mg PO DAILY hydrochlorothiazide 12.5 mg PO DAILY hydroxyzine HCl 50mg-100mg daily ocrelizumab (Ocrevus) 600 mg IV [id number] omeprazole mg PO .QD quetiapine mg PO .QHS sennosides (senna) 8.6 mg PO DAILY PRN vitamin B complex ER (Complex B-100 tablet,extended release) 1 tab PO DAILY Tobacco use date assessed: 03/18/25 Dental Screening Dental Screen Date: 03/18/25 HPI HPI Comments History of Present Illness Details 59-year-old male with history of multiple sclerosis, hypertension, colon polyp, familial hypercholesterolemia, GERD, CKD stage 3, history of PE, major depressive disorder, neurogenic bladder presenting to the office today for management of chronic conditions and to establish care. Last seen in the office 1 month ago Multiple sclerosis-follows with the [facility]. Has been doing well on Ocrevus infusions every 6 months. Gets IV solumedrol with infusion. Reports symptoms of fatigue and balance have improved. He still has spasticity in the right lower extremity as well as left. He uses walking sticks to assist with ambulation. He does have optic neuritis. Has visual blind spots and kaleidoscope vision. Upcoming appt with ophtho Occ diverticulitis- last flare years ago, if happens again needs resection Familial hypercholesterolemia-Last LDL 359. Intolerant of statins. Currently on fenofibrate 160 mg daily. Referred to Cardiology Major depressive disorder-stable on escitalopram. Also hydroxyzine and Lunesta. [facility] Obesity-working at weight loss. Has lost about 30 lb in the last year. Following a healthier diet History of PE- lifelong Eliquis Hypertension- hctz 12.5mg daily added ti amlodipine 10mg daily at last visit. Blood pressures much improved. On recheck 136/86 Concerns: None Health maintenance: Last colonoscopy 08/2023 with tubular adenoma, Dr. Wang [facility] ROS: General: No fevers, malaise, unintentional weight loss HEENT: No blurred vision, diplopia. No sore throat, nasal congestion, rhinorrhea, sinus pain, ear pain Cardiovascular: No chest pain, palpitations, or leg edema Respiratory: No shortness of breath, wheezing, cough GI: No abdominal pain, nausea, vomiting, diarrhea, constipation, melena, hematochezia : No dysuria, hematuria, increased urinary frequency, decreased urinary output MSK: No myalgia, back pain Neuro: No headaches, weakness, paresthesias Skin: No rashes or lesions EXAM: Constitutional - Awake and Alert, No apparent distress Eyes - PERRL Cardiovascular - S1S2, RRR, No edema Respiratory - Normal lung expansion, Normal respiratory effort, No respiratory distress, CTA bilaterally Extremities - no calf tenderness bilaterally, no swelling Skin - Warm/Dry Neurological - Alert & oriented x3, spasticity noted in the right lower extremity Psychological - Appropriate affect PFSH Medical History Major depressive disorder Vitamin D deficiency Hypertension Multiple sclerosis Surgical History History of colonoscopy (~08/28/23) History of tonsillectomy Family History (Updated 03/18/25 @ 14:44 by Vijaya Goldberg MA) Father CAD (coronary artery disease) Arteriosclerosis of bypass graft of coronary artery Mother CAD (coronary artery disease) Heart valve replaced Social History Housing: House Alcohol intake: current Alcohol intake frequency: holidays/special occasions only Patient Tobacco Use Status: Former Tobacco user Tobacco use type: Cigarette Years Smoked: 40 +/- e-Cigarette/Vaping Use: Never Used Substance Use Type: Marijuana service: No Current occupational status: disabled Cognitive needs: No Hearing needs: No Vision needs: No Questionnaire Thrive Questionnaire Date Thrive assessed: 03/18/25 AUDIT C Alcohol Use Questionnaire (AUDIT-C) 1. How often do you have a drink containing alcohol?: Monthly or less 2. How many drinks containing alcohol do you have on a typical day when you are drinking?: 1 or 2 3. How often do you have six or more drinks on one occasion?: Never Total Score: 1 ROSMERY-7 AMB Questionnaire ROSMERY-7 Date ROSMERY - 7 assessed: 03/18/25 Source: Developed by Drs. Giuliano Freire, Dai Wu, Richie Reed and colleagues, with an educational britt from [employer]. Physical exam (Primary Care) Vital Signs: Last Vital Signs Temp 97.3 F 04/01/25 14:16 Pulse 76 04/01/25 14:16 Resp 16 04/01/25 14:16 BP 136/86 04/01/25 14:38 Pulse Ox 96 04/01/25 14:16 Oxygen Delivery Method Room Air 04/01/25 14:16 BMI result Body Mass Index 30.9 Tobacco/Smoking Status: Tobacco use Status Tobacco use date assessed 03/18/25 04/01/25 14:16 Patient Tobacco Use Status Former Tobacco user 04/01/25 14:16 Tobacco use type Cigarette 04/01/25 14:16 e-Cigarette/Vaping Use Never Used 04/01/25 14:16 Thrive Assessment: Date of Thrive Assessment Date Thrive assessed 03/18/25 04/01/25 14:16 Coding Level of Care Code Est Pt Level 3 (61093) Complex visit Add On G2211 Diagnoses Hypertension I10 Assessment & Plan Assessment & Plan (1) Hypertension: Code(s): I10 - Essential (primary) hypertension Category: Medical Plan: Controlled. Continue amlodipine 10mg and hctz 12.5mg daily. Low sodium diet Plan Follow up in 6 months, labs prior to visit Orders: Orders Basic Metabolic Panel 6 Months E78.5 - Hyperlipidemia, unspecified, I10 - Essential (primary) hypertension Lipid Panel 6 Months E78.5 - Hyperlipidemia, unspecified, I10 - Essential (primary) hypertension Medications: Changed From omeprazole PO .QD To omeprazole 40 mg PO DAILY 90 caps 1RF
[2025-04-01 14:16] VITALS: BP 140/92; PULSE 76; RESP 16; TEMP 36.3; O2SAT 96; BMI 30.9
[2025-04-01 14:38] VITALS: BP 136/86
--- OUTSIDE RECORDS SUMMARY | 2025-04-01 18:24 | XMS_ITS | Clinical Summary ---
Author Organization [address] [facility] Address [address] [place] [address] Phone Care Team Providers Care Traveling Secretary Name Role Phone Venancio Payne MD Primary Care Provider [phone] Allergies No known active allergies Medications amLODIPine [...] - 02/16/2025 11:59 PM EDT Hospital Encounter [facility] [address] [phone] Multiple sclerosis (Primary Dx); Encounter [...] Upcoming Encounters Date Type Department Care Team ([facility] st Contact Info) Description 04/06/2025 3:00 PM EST Office Visit [facility] [place] [address] [phone] [address] [phone] 08/16/2025 12:00 PM EDT Appointment [facility] - [place] [address] [phone] Health Maintenance Due Date Last Done Comments [...] LAB HEMETOLOGY METHOD 02/16/2025 2:18 PM EDT [facility] RBC 5.50 4.50 - 5.50 M/mcL [facility] Hemoglobin 16.5 13.5 - 17.5 g/dL LAB HEMETOLOGY METHOD 02/16/2025 2:18 PM EDT [facility] Hematocrit 46.6 42.0 - 54.0 % LAB HEMETOLOGY METHOD 02/16/2025 2:18 PM [facility] MCV 84.9 79.0 - 98.0 FL LAB HEMETOLOGY METHOD 02/16/2025 2:18 PM [facility] MCH 30.1 27.0 - 32.0 pcg LAB HEMETOLOGY METHOD 02/16/2025 2:18 PM [facility] MCHC 35.4 32.0 - 37.0 g/dL LAB HEMETOLOGY METHOD 02/16/2025 2:18 PM [facility] RDW 14.3 11.0 - 15.0 % LAB HEMETOLOGY METHOD 02/16/2025 2:18 PM [facility] Platelets 426(H) 130 - 400 K/[facility] LAB HEMETOLOGY METHOD 02/16/2025 2:18 PM EDT [facility] MPV 11.7(H) 7.0 - 11.0 FL LAB HEMETOLOGY METHOD 02/16/2025 2:18 PM [facility] NRBC 0.0 <1.0 % LAB HEMETOLOGY METHOD 02/16/2025 2:18 PM [facility] NRBC Absolute 0.00 <0.10 K/[facility] LAB HEMETOLOGY METHOD [facility] Neutrophils Relative 67.6 % LAB HEMETOLOGY METHOD 02/16/2025 2:18 PM EDT [facility] Lymphocytes Relative 14.8 % LAB HEMETOLOGY METHOD 02/16/2025 2:18 PM T [facility] Monocytes Relative 11.2 % LAB HEMETOLOGY METHOD 02/16/2025 2:18 PM EDT [facility] Eosinophils Relative 4.5 % LAB HEMETOLOGY METHOD 02/16/2025 2:18 PM EDT [facility] Basophils Relative 1.1 % LAB HEMETOLOGY METHOD 02/16/2025 2:18 PM [facility] Immature Granulocytes Relative 0.8 % LAB HEMETOLOGY METHOD 02/16/2025 2:18 PM [facility] Neutrophils Absolute 5.08 1.50 - 7.00 K/mcL LAB HEMETOLOGY METHOD 02/16/2025 2:18 PM EDT [facility] Lymphocytes Absolute 1.11 1.00 - 5.00 K/mcL LAB HEMETOLOGY METHOD 02/16/2025 2:18 PM [facility] Monocytes Absolute 0.84 0.20 - 1.00 K/mcL LAB HEMETOLOGY METHOD 02/16/2025 2:18 PM [facility] Eosinophils Absolute 0.34 0.00 - 0.50 K/mcL LAB HEMETOLOGY METHOD 02/16/2025 2:18 PM EDT [facility] Basophils Absolute 0.08 0.00 - 0.20 K/mcL LAB HEMETOLOGY METHOD 02/16/2025 2:18 PM [facility] Immature Granulocytes Absolute 0.06(H) 0.00 - 0.03 K/mcL LAB HEMETOLOGY METHOD 02/16/2025 2:18 PM [facility] Blood Venous blood specimen / Unknown Venipuncture / Unknown 02/16/2025 11:43 AM EDT 02/16/2025 11:43 AM EDT Ada Cordovai PA LAB BLOOD ORDERABLES Final R esult Performing Organization Address [facility]/ZIP Co de Phone Number [facility] [address] [place] [address], [place] [phone] * (ABNORMAL) Creatinine (02/16/2025 11:43 AM EDT) Creatinine 1.54(H) 0.70 - 1.30 mg/dL LAB CHEMISTRY METHOD 02/16/2025 3:04 PM EDT [facility] eGFR 52(L) >=60 mL/min/1. 73m2 LAB CHEMISTRY METHOD 02/16/2025 3:04 PM EDT [facility] Comment:Calculation based on the Chronic Kidney Disease Epidemiology Collaboration (CKD-EPI) equation refit without adjustment for race. Blood Venous blood specimen / Unknown Venipuncture / Unknown 02/16/2025 11:43 AM EDT 02/16/2025 11:43 AM EDT Ada Cordovai PA LAB BLOOD ORDERABLES Final R esult Performing Organization Address [facility] Co de Phone Number [facility] [address] [place] [address], [place] [phone] * BUN (02/16/2025 11:43 AM EDT) BUN 17 5 - 25 mg/dL LAB CHEMISTRY METHOD 02/16/2025 3:04 PM EDT [facility] Blood Venous blood specimen / Unknown Venipuncture / Unknown 02/16/2025 11:43 AM EDT 02/16/2025 11:43 AM EDT Ada Cordovai PA LAB BLOOD ORDERABLES Final R esult [facility] [address] [place] [address], [place] [phone] * Hepatic function panel (02/16/2025 11:43 AM EDT) Total Protein 6.8 6.0 - 8.0 g/dL LAB CHEMISTRY METHOD 02/16/2025 3:08 PM EDT [facility] Albumin 3.7 3.2 - 5.0 g/dL LAB CHEMISTRY METHOD 02/16/2025 3:08 PM EDT [facility] Total Bilirubin 0.4 0.0 - 1.4 mg/dL LAB CHEMISTRY METHOD 02/16/2025 3:08 PM T [facility] Bilirubin, Direct 0.2 0.0 - 0.3 mg/dL LAB CHEMISTRY METHOD 02/16/2025 3:08 PM EDT [facility] Bilirubin, Indirect 0.2 0.0 - 1.1 mg/dL LAB CHEMISTRY METHOD 02/16/2025 3:08 PM EDT [facility] ALT (SGPT) 51 10 - 60 unit/L LAB CHEMISTRY METHOD 02/16/2025 3:08 PM T [facility] AST (SGOT) 37 10 - 42 unit/L LAB CHEMISTRY METHOD 02/16/2025 3:08 PM EDT [facility] Alkaline Phosphatase 100 42 - 121 unit/L LAB CHEMISTRY METHOD 02/16/2025 3:08 PM EDT [facility] Blood Venous blood specimen / Unknown Venipuncture / Unknown 02/16/2025 11:43 AM EDT 02/16/2025 11:43 AM EDT Ada LEVIN LAB BLOOD ORDERABLES Final R esult [facility] [address] [place] [address], [place] [phone] from Last 3 Months Insurance MEDICARE [place]ICAID [place] Advance Directives Documents on File Type Date Recorded 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
--- OUTSIDE RECORDS SUMMARY | 2025-04-01 18:24 | XMS_ITS | Clinical Summary ---
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
== END 2025-04-01 14:47 | disposition home or self-care (01) ==
PROVIDERS: PCP Physician Assistant; Visit Provider Physician Assistant
DX: I10 Essential (primary) hypertension (principal)

== ENCOUNTER → 2025-04-01 14:13 | Outpatient (BNVA) | payer MEDICARE, MEDICAID, SELFPAY | PROVIDERS: PCP Physician Assistant; Visit Provider Physician Assistant | DX: I10 Essential (primary) hypertension (principal); E78.5 Hyperlipidemia, unspecified; K21.9 Gastro-esophageal reflux disease without esophagitis; G35.D Multiple sclerosis, unspecified; E78.00 Pure hypercholesterolemia, unspecified; F33.40 Major depressive disorder, recurrent, in remission, unspecified; E66.9 Obesity, unspecified; Z86.711 Personal history of pulmonary embolism | CPT/HCPCS: 99212 ==